=== PATIENT | female | born 1935 | race Caucasian/White ===

== ENCOUNTER 2016-07-25 08:24 | Observation (INO) | payer MEDICARE, OTHER ==
[~2016-07-25] VITALS: Ht 157.5 cm; Wt 63.0 kg
[2016-07-25] VITALS (7 sets, daily range): BP systolic 150–167; BP diastolic 65–71; PULSE 44–71; RESP 20–22; Ht 157.5 cm; Wt 63.0 kg
[2016-07-25] MEDS ORDERED: ONDANSETRON 4 MG INJ IV STA (08:28)
[2016-07-25] MEDS ORDERED: SOD CHLORIDE 0.9% 1,000 ML IV STA (08:28)
--- NOTE | 2016-07-25 08:39 | ERA ---
ER Documentation Chief Complaint Date/Time DATE: 07/25/16 TIME: 08:33 Chief Complaint HPI This is an 81-year-old Tuvaluan-speaking female that was brought into the emergency department by EMS complaining of a sudden onset of dizziness upon awakening this morning. She felt as though the room was spinning around her. Her symptoms are worse when she sat up and better when she lies supine. The dizziness became so intense that she lie down on the floor to improve her symptoms. She indicates she has had multiple similar episodes of dizziness in the past but this appeared to be more intense where she felt nauseous however she did not experience any emesis. She denied headache or changes in vision. She denied any syncope or near syncope. She denies any urinary incontinence. She does not have a history of dementia and there is been no changes in her gait. Her [id number] indicates that on July 11, 2015 she was diagnosed with the flu. She was placed on antibiotics by her primary care physician which she completed but cannot remember the name of the antibiotics. Shortly after she developed loose watery stools but denies any hemoptysis hematemesis or melanotic stools. ROS All systems reviewed and are negative except as per history of present illness. Medications Home Meds Reported Medications Olopatadine* (Pataday*) 0.2% - 2.5 Ml Drops, 1 DROP BOTH EYES DAILY, EA 07/25/16 Clonidine Hcl* (Clonidine Hcl*) 0.1 Mg Tab, 0.1 MG PO DAILY Y for ELEVATED BLOOD PRESSURE, TAB 07/25/16 Metoprolol Succinate* (Toprol XL*) 25 Mg Tab.sr.24h, 25 MG PO BID, #30 TAB 07/25/16 Escitalopram Oxalate* (Lexapro*) 10 Mg Tablet, 10 MG PO DAILY, #30 TAB 07/25/16 Esomeprazole Mag Trihydrate (Nexium) 40 Mg Capsule.dr, 40 MG PO DAILY, #30 CAP 07/25/16 Atorvastatin Calcium* (Atorvastatin Calcium*) 20 Mg Tablet, 20 MG PO QHS, #30 TAB 07/25/16 Losartan-Hydrochlorothiazide (Losartan-HCTZ) 50-12.5 Mg Tab, 1 TAB PO BID, TAB 07/25/16 Amlodipine Besylate* (Amlodipine Besylate*) 5 Mg Tablet, 5 MG PO BID, #30 TAB 07/25/16 Furosemide* (Furosemide*) 20 Mg Tablet, 20 MG PO DAILY, #60 TAB 07/25/16 Warfarin Sodium* (Coumadin*) 2 Mg Tablet, 3 MG PO DAILY, TAB 07/25/16 Benzonatate* (Benzonatate*) 100 Mg Capsule, 100 MG PO QID Y for COUGH, CAP 07/25/16 Triazolam* (Triazolam*) 0.25 Mg Tablet, 0.25 MG PO HS Y for INSOMNIA, TAB 07/25/16 Ferrous Sulfate* (Ferrous Sulfate*) 325 Mg Tabec, 325 MG PO BID, TAB 07/25/16 Potassium Chloride* (Klor-Con*) 8 Meq Tablet.sa, 8 MEQ PO DAILY, TAB 07/25/16 Discontinued Reported Medications Losartan Potassium* (Losartan Potassium*) 50 Mg Tablet, 50 MG PO BID, TAB 07/25/16 Allergies Allergies: Coded Allergies: No Known Allergy (Unverified , 07/25/16) Physical Exam Vitals Vital Signs Date Time Temp Pulse Resp B/P Pulse Ox O2 Delivery O2 Flow Rate FiO2 07/25/16 09:54 65 18 147/60 98 Nasal Cannula 2.0 07/25/16 08:36 98.2 88 16 172/94 99 Physical Exam Constitutional:Well-developed. Well-nourished. HEENT:Normocephalic. Atraumatic.Pupils were equal round reactive to light. Dry mucous membranes.No tonsillar exudates. Fundoscopy exam showed sharp optic disks and venous pulsations are present Neck: No nuchal rigidity. No lymphadenopathy. No posterior cervical spine tenderness or step-offs. Respiratory: Not using accessory muscles of respiration.Lungs were clear to auscultation bilaterally. No rhonchi. No rales. No wheezing. Cardiovascular: Regular rate regular rhythm.No murmurs. Aortic valve click from previous valve repair with no rubs were appreciated.S1, S2 normal. Distal pulses are palpable 2+ bilaterally. GI: Abdomen was soft. Nontender. Non Distended. No pulsatile abdominal masses or bruits. No rebound. No guarding. Bowel sounds were present and normal. Muscle skeletal: Full range of motion of both the upper and lower extremities bilaterally.Normal muscle tone.No assymetrical calf tenderness or swelling. Skin: No petechia, no purpura. No lesions on the palms or the soles of the feet. No maculopapular rash. NEURO: Patient was alert, awake, orientated x3.No facial droop. Gait observed and normal with no ataxia.Speech had regular rate and rhythm. No focal neurological deficits. No nystagmus Result Diagram: 07/25/16 0847 07/25/16 0847 Results 24 hrs Laboratory Tests Test 07/25/16 08:47 Activated Partial Thromboplast Time 50.6Sec Alanine Aminotransferase (ALT/SGPT) 13IU/L Albumin 4.0g/dl Albumin/Globulin Ratio 1.25 Alkaline Phosphatase 99IU/L Amylase Level 88U/L Anion Gap 19 Aspartate Amino Transf (AST/SGOT) 18IU/L B-Type Natriuretic Peptide 1700PG/ML Basophils # 0.010^3/ul Basophils % 0.2% Blood Morphology Comment Blood Urea Nitrogen 44mg/dl Calcium Level 9.0mg/dl Carbon Dioxide Level 26mmol/L Chloride Level 103mmol/L Creatinine 1.19mg/dl Direct Bilirubin 0.00mg/dl Eosinophils # 0.110^3/ul Eosinophils % 0.9% Globulin 3.20g/dl Glucose Level 172mg/dl Hematocrit 31.5% Hemoglobin 10.4g/dl INR International Normalized Ratio 3.15 Indirect Bilirubin 0.2mg/dl Lactic Acid Level 2.6mmol/L Lipase 100U/L Lymphocytes # 0.810^3/ul Lymphocytes % 7.4% Mean Corpuscular Hemoglobin 30.3pg Mean Corpuscular Hemoglobin Concent 33.1g/dl Mean Corpuscular Volume 91.6fl Mean Platelet Volume 8.0fl Monocytes # 0.710^3/ul Monocytes % 6.2% Neutrophils # 9.610^3/ul Neutrophils % 85.3% Nucleated Red Blood Cells # 0.010^3/ul Nucleated Red Blood Cells % 0.0/100WBC Platelet Count 51456^3/UL Potassium Level 3.6mmol/L Prothrombin Time 32.8Sec Prothrombin Time Ratio 2.6 Red Blood Count 3.4410^6/ul Red Cell Distribution Width 15.2% Sodium Level 144mmol/L Total Bilirubin 0.2mg/dl Total Protein 7.2g/dl Troponin I < 0.012ng/ml Urine Bacteria FEW Urine Bilirubin NEGATIVE Urine Clarity CLEAR Urine Color LT. YELLOW Urine Glucose NEGATIVE% Urine Hemoglobin 1+ Urine Ketones NEGATIVE Urine Leukocyte Esterase NEGATIVE Urine Microscopic RBC 5-10/HPF Urine Microscopic WBC 0-2/HPF Urine Nitrite NEGATIVE Urine Specific [place] 1.025 Urine Squamous Epithelial Cells FEW Urine Total Protein 4+ Urine Urobilinogen 0.2 E.U./dL Urine pH 6.0 White Blood Count 11.210^3/ul Current Medications Medications (Trade) Dose Ordered Sig/Toy Route PRN Reason Start Time Stop Time Status Last Admin Dose Admin Sodium Chloride (NS) 1,000 ml @ 1,000 mls/hr Q1H STAT IV 07/25/16 08:28 07/25/16 09:27 DC 07/25/16 09:07 Ondansetron HCl (Zofran Inj) 4 mg ONCE STAT IV 07/25/16 08:28 07/25/16 08:32 DC 07/25/16 09:05 Clonidine (Catapres) 0.1 mg ONCE ONCE PO 07/25/16 08:30 07/25/16 08:32 DC Meclizine HCl (Antivert) 25 mg ONCE ONCE PO 07/25/16 09:00 07/25/16 09:01 DC 07/25/16 09:06 Procedures/[facility] This patient was seen and evaluated by myself. The patient presented to the emergency department complaining of dizziness. My differential diagnosis included but was not limited to hypovolemia, myocardial infarction, pulmonary embolism, hypoglycemia, hypoxia, anemia, vasovagal episode, hypothyroidism, anxiety, peripheral or central vertigo. The patient was placed on a patient monitor, continuous pulse oximetry and IV access established by nursing staff. The patient was given a liter bolus of 0.9 normal saline as she did appear to have clinical dehydration with dry mucous membranes and diarrhea over the past several days. The patient indicates that the diarrhea has improved but has not completely resolved. She is at risk of Clostridium difficile and therefore I will obtain a stool sample to send for C. difficile. The patient had prerenal azotemia with lactic acidosis likely secondary to severe dehydration. 12 Lead EKG tracing ordered and reviewed by myself showed: Normal sinus rhythm of [address] scan of the patient's head which was reviewed by the radiologist as well as myself and indicated the following bpm and no arrhythmia. [place] interval normal. QRS duration normal. No ST segment elevation No ST segment depression. No changes consistent with acute ischemia. Also obtained a CT scan of the patient's head ordered and reviewed by myself as well as the radiologist which indicated the following: No acute intracranial hemorrhage or significant mass effect. Severe subacute to chronic microvascular disease and intracranial atherosclerosis. If there is suspicion for recent stroke, consider brain MRI for further evaluation. Chronic-appearing bilateral cerebellar infarcts. Enlarged ventricles with relative effacement of sulci at the vertex may be due to central greater than peripheral volume loss. Alternatively in the appropriate clinical setting, normal pressure hydrocephalus may also have this appearance. The patient is therapeutic with her INR as she is on Coumadin. She has been on Coumadin since 2000 after the patient had a suspected valvular repair with an open heart surgery. The patient did not have any physical exam findings to suggest normal pressure hydrocephalus as the patient did not have any urinary incontinence, no dementia no changes in her gait. Nor did the patient complained of a headache. She did however have dizziness but no syncope or near syncope episode. She will be given Zofran and Antivert and stated her symptoms had completely resolved and they also improved after she received IV fluids. However given the patient's multiple comorbidities and severe dehydration she will be admitted to the hospital to receive IV hydration. I also spoke with the neurosurgeon Dr. Blanco who kindly stated he will be consulted on the case but at this time the patient did not require any neurosurgical intervention. The patient was admitted in serious condition under the care of Dr. Brand the hospitalist Departure Diagnosis: Primary Impression: Dizziness Additional Impressions: Prerenal azotemia Severe dehydration Condition: JAX Jovel Jul 25, 2016 08:39
[2016-07-25] MEDS ORDERED: MECLIZINE 12.5 MG TAB PO ONE (09:00)
[2016-07-25 09:16] LABS: BASOPHILS % 0.2 % (0.0-2.0); EOSINOPHILS # 0.1 10^3/ul (0.0-0.5); EOSINOPHILS % 0.9 % (0.0-7.0); HEMATOCRIT 31.5 % (37.0-47.0); HEMOGLOBIN 10.4 g/dl (12.0-16.0); LYMPHOCYTES # 0.8 10^3/ul (0.8-2.9); LYMPHOCYTES % 7.4 % (15.0-51.0); MEAN CORPUSCULAR HEMOGLOBIN 30.3 pg (29.0-33.0); MEAN CORPUSCULAR HGB CONC 33.1 g/dl (32.0-37.0); MEAN CORPUSCULAR VOLUME 91.6 fl (82.0-101.0); MONOCYTE # 0.7 10^3/ul (0.3-0.9); MONOCYTES % 6.2 % (0.0-11.0); NEUTROPHIL # 9.6 10^3/ul (1.6-7.5); NEUTROPHILS % 85.3 % (39.0-77.0); PLATELET COUNT 322 10^3/UL (140-440); RED BLOOD COUNT 3.44 10^6/ul (4.20-5.40); RED CELL DISTRIBUTION WIDTH 15.2 % (11.5-14.5); UNCORRECTED WBC 11.2 10^3/ul (4.8-10.8); WHITE BLOOD COUNT 11.2 10^3/ul (4.8-10.8)
[2016-07-25 09:17] LABS: CONDITION 1; LH ANALYZER COMMENTS 1
--- NOTE | 2016-07-25 09:17 | RADRPT ---
PROCEDURE: CT Brain without contrast. CLINICAL INDICATION: Neurologic deficit TECHNIQUE: A CT of the brain was performed on multidetector high-resolution CT scanner utilizing a xial sections from the skull base through the vertex without contrast. One or more of the following dose reduction techniques were used: Automated exposure control, Adjustment of the mA and/or kV acc ording to patient size, and/or use of iterative reconstruction technique. DOSE: CTDI = 43 mGy and the DLP = 630 mGy-cm. COMPARISON: None available FINDINGS: No acute intracranial hemorrhage, significant mass effect or midline shift. Confluent hypoattenuatio n of the cerebral white matter is compatible with severe subacute to chronic microvascular ischemic changes. Chronic-appearing bilateral cerebellar infarcts. Atherosclerotic calcifications of the cave rnous segments of the internal carotid arteries are seen. Prominence of the cortical sulci and ventr icles with relative effacement of sulci at the vertex. Paranasal sinus mucosal thickening with parti al opacification of the right maxillary sinus. Scattered calcifications are seen which may be a seq uela of old healed neurocysticercosis. IMPRESSION: No acute intracranial hemorrhage or significant mass effect. Severe subacute to chronic microvascular disease and intracranial atherosclerosis. If there is suspi cion for recent stroke, consider brain MRI for further evaluation. Chronic-appearing bilateral cerebellar infarcts. Enlarged ventricles with relative effacement of sulci at the vertex may be due to central greater th an peripheral volume loss. Alternatively in the appropriate clinical setting, normal pressure hydroc ephalus may also have this appearance. RPTAT: AA .Rupesh Garcia MD, MD Date Time Electronically viewed and signed by .Rupesh Garcia MD, on 07/25/2016 09:17 .T/
[2016-07-25 09:20] LABS: CHLORIDE 103 mmol/L (97-110)
[2016-07-25 09:21] LABS: ADD UMIC YES; INR 3.15; POTASSIUM 3.6 mmol/L (3.5-5.1); PROTIME 32.8 Sec (12.2-14.2); PT RATIO 2.6; SODIUM 144 mmol/L (135-144); URINE BILIRUBIN (Dip) NEGATIVE (NEGATIVE); URINE BLOOD (Dip) 1+ (NEGATIVE); URINE COLOR LT. YELLOW (YELLOW); URINE GLUCOSE (Dip) NEGATIVE (NEGATIVE); URINE KETONES (Dip) NEGATIVE (NEGATIVE); URINE LEUKOCYTE ESTERASE (Dip) NEGATIVE (NEGATIVE); URINE NITRITE (Dip) NEGATIVE (NEGATIVE); URINE TOTAL PROTEIN (Dip) 4+ (NEGATIVE); URINE UROBILINOGEN (Dip) 0.2 E.U./dL (0.1-1.0)
[2016-07-25 09:22] LABS: PARTIAL THROMBOPLASTIN TIME 50.6 Sec (25.0-35.0)
[2016-07-25 09:23] LABS: AMYLASE 88 U/L (11-123); ANION GAP 19 (8-16); CARBON DIOXIDE 26 mmol/L (21-31)
[2016-07-25 09:24] LABS: ALANINE AMINOTRANSFERASE 13 IU/L (13-69); ALBUMIN/GLOBULIN RATIO 1.25; ALKALINE PHOSPHATASE 99 IU/L (42-121); ASPARTATE AMINO TRANSFERASE 18 IU/L (15-46); BILIRUBIN,INDIRECT 0.2 mg/dl (0-1.1); BILIRUBIN,TOTAL 0.2 mg/dl (0.2-1.3); BLOOD UREA NITROGEN 44 mg/dl (7-20); CREATININE 1.19 mg/dl (0.44-1.00); GLUCOSE 172 mg/dl (70-220); TOTAL PROTEIN 7.2 g/dl (6.1-8.1)
[2016-07-25 09:42] LABS: TROPONIN-I < 0.012 ng/ml (0.00-0.12)
[2016-07-25] MEDS ORDERED: POTA8TAB2 PO (10:12)
[2016-07-25] MEDS ORDERED: FER325 PO (10:13)
[2016-07-25] MEDS ORDERED: TRIA0.2521 PO (10:13)
[2016-07-25] MEDS ORDERED: BENZ-5 PO (10:14)
[2016-07-25] MEDS ORDERED: WARF2TAB PO (10:14)
[2016-07-25] MEDS ORDERED: FURO20TA3 PO (10:15)
[2016-07-25] MEDS ORDERED: AMLO-145 PO (10:16)
[2016-07-25] MEDS ORDERED: LOSA50TA6 PO (10:16)
[2016-07-25] MEDS ORDERED: LOSA1TAB19 PO (10:17)
[2016-07-25] MEDS ORDERED: ATOR20TA38 PO (10:18)
[2016-07-25] MEDS ORDERED: ESOM40CA PO (10:19)
[2016-07-25] MEDS ORDERED: METO25TA7 PO (10:20)
[2016-07-25] MEDS ORDERED: ESCI10TA PO (10:20)
[2016-07-25] MEDS ORDERED: CLON-379 PO (10:23)
[2016-07-25] MEDS ORDERED: OLOP2.5D BOTH EYES (10:24)
[2016-07-25 10:27] LABS: BACTERIA,URINE FEW; SQUAMOUS EPITHELIAL CELL,UR FEW
--- NOTE | 2016-07-25 10:28 | RADRPT ---
PROCEDURE: CHEST 1VW CLINICAL INDICATION: Chest pain TECHNIQUE: Single frontal view of the chest was obtained COMPARISON: None. FINDINGS: There are sternotomy wires and prosthetic heart valve present. The cardiac size is mildly enlarged. Aortic vascular calcifications are demonstrated. There is mild pulmonary vascular congestion. The lungs are otherwise clear. No consolidation, effusion, or pneumothorax. Mild degenerative changes of the visualized osseous structures are visualized. IMPRESSION: 1. Mild cardiomegaly with mild pulmonary vascular congestion. 2. Atherosclerosis. RPTAT:PP .Adolfo Long MD, MD Date Time Electronically viewed and signed by .Adolfo Long MD, on 07/25/2016 10:28 .V/
[2016-07-25] MEDS ORDERED: ONDANSETRON 4 MG INJ IV PRN (11:30)
[2016-07-25] MEDS ORDERED: ACETAMINOPHEN 325 MG TAB PO PRN (11:30)
[2016-07-25] MEDS ORDERED: INFLUENZA VIRUS VACCINE 0.5 ML SYG IM* ONE (15:30)
[2016-07-25] MEDS ORDERED: NON-FORMULARY/PATIENT OWN MED (Esomeprazole Mag Trihydrate (Nexium) 40 MG) PO SCH (17:30)
[2016-07-25] MEDS ORDERED: SOD CHLORIDE 0.9% 1,000 ML IV SCH (17:30)
[2016-07-25] MEDS ORDERED: ALPRAZOLAM 0.25 MG TAB PO PRN (17:30)
[2016-07-25 18:39] LABS: CREATINE KINASE 86 IU/L (23-200)
[2016-07-25 18:49] LABS: CK-MB 3.12 ng/ml (0.0-2.4)
[2016-07-25 19:01] LABS: TROPONIN-I < 0.012 ng/ml (0.00-0.12)
[2016-07-25] MEDS ORDERED: LORAZEPAM 2 MG INJ IV ONE (20:30)
--- NOTE | 2016-07-25 20:37 | CONS ---
Date/Time of Note Date/Time of Note DATE: 07/25/16 TIME: 20:15 Assessment/Plan Assessment/Plan Problems: (1) Hydrocephalus Comment: The patient does have prominent ventricles. Her clinical picture however is not consistent with NPH or other forms of hydrocephalus. Her thinking is lucid and she is not incontinent. Gait may not be normal, but I do not feel it is lopez to get her up now given ongoing vertigo. In any case, NPH better assessed in outpatient setting. I discussed with patient 's daughter that in the future if the patient develops thinking problems, worsening gait and/or urinary incontinence she should be evaluated for possible NPH. (2) Vertigo Comment: Patient with severe vertigo spell. This is not related to ventricular size and is not a neurosurgical issue. May be related to dehydration. Likely peripheral in origin but neurovascular posterior circulation problem cannot be excluded. Should be evaluated by MRI and further workup perhaps by neurology and /or ENT. I would also recommend continuing anticoagulant. Recommend 1. MRI brain 2. Neurology and/or ENT as appropriate 3. Continue Coumadin, blood thinners. Consultation Date/Type/Reason Admit Date/Time Jul 25, 2016 at 11:17 Date of Consultation: Jul 25, 2016 Type of Consultation: Neurosurgery Reason for Consultation Hydrocephalus Hx of Present Illness The patient was admitted due to episode of severe vertigo today. She reports that upon awakening she experienced violent room spinning. She had to lie down on the floor. Room seemed to be spinning. Accompanied by nausea and vomiting. Since then she feels much better but continues to have vertigo especially when sits up or with head of bed elevated. She reports that prior to this episode she was frequently dizzy with poor balance but nothing nearly as severe as today. Several weeks ago she had flu and since then has had very loose stools. Possibly getting dehydrated. No headache or neck pain. No changes in vision and she needs glasses only for reading. Hearing is normal on both sides. She reports that 3 days ago she had R arm numbness which resolved after 1 day. She is very slow walking, but this is related to weakness and fear of getting dizzy and falling. She reports no problems getting her legs to move. No incontinence. No confusion. She wishes memory was better but does not think it is particularly abnormal. Her daughter says that she is entirely lucid and indeed very mentally sharp. Lives and cares for herself including paying bills. 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 Constitutional: No chills, No diaphoresis Eyes: No visual change ENT: other (no hearing loss) Respiratory: No pain, No shortness of breath Cardiovascular: No chest pain Gastrointestinal: diarrhea, nausea, vomiting, No pain Genitourinary: no complaints Musculoskeletal: No back pain, No neck pain Neurologic: dizziness, No confusion, No focal-weakness, No headache Psychological: no complaints Past Medical History Medical History: hypertension, other (valvular heart disease) Past Surgical History Past Surgical Hx: other (heart valve replacement) Social History Alcohol Use: none Smoking Status: Never smoker Drug Use: none Other Social History lives by herself Exam/Review of Systems Vital Signs Vitals Vital Signs Date Time Temp Pulse Resp B/P Pulse Ox O2 Delivery O2 Flow Rate FiO2 07/25/16 17:12 97.8 60 20 151/68 98 07/25/16 16:48 Nasal Cannula 2.0 Exam Constitutional: alert, oriented, No distress Psych: nl mood/affect Head: atraumatic, normocephalic Eyes: EOMI (R pupil 3mm; L pupil 4mm, both reactive), nl conjunctiva ENMT: nl external ears & nose Neck: other (limits ROM due to dizziness), supple Cardiovascular: nl pulses Musculoskeletal: nl extremities to inspection, No muscle weakness Extremities: No calf tenderness, No edema Neurological: nl mental status, nl speech, No confused, No focal weakness (face symmetric, tongue and palate midline; motor 5/5 distal and proximal all extrem; normal bulk and tone; no drift; sensation itact LT all extrem. DTRs 1+/2 bicep, tricep, knees; 0/2 ankles; toes equivocal; no dysmetria and coordiation seems intact bilat) Results I reviewed CT brain; ventricles are prominent with possibly some transependymal flow; sulci also prominent. She has age-appropriate atrophy with possibly ventricles enlarge out of proportion to sulci. Result Diagram: 07/25/16 0847 07/25/16 0847 Results 24 hrs Laboratory Tests Test 07/25/16 08:47 07/25/16 17:50 Activated Partial Thromboplast Time 50.6 H Alanine Aminotransferase (ALT/SGPT) 13 Albumin 4.0 Albumin/Globulin Ratio 1.25 Alkaline Phosphatase 99 Amylase Level 88 Anion Gap 19 H Aspartate Amino Transf (AST/SGOT) 18 B-Type Natriuretic Peptide 1700 H Basophils # 0.0 Basophils % 0.2 Blood Morphology Comment Blood Urea Nitrogen 44 H Calcium Level 9.0 Carbon Dioxide Level 26 Chloride Level 103 Creatinine 1.19 H Direct Bilirubin 0.00 Eosinophils # 0.1 Eosinophils % 0.9 Globulin 3.20 Glucose Level 172 Hematocrit 31.5 L Hemoglobin 10.4 L INR International Normalized Ratio 3.15 Indirect Bilirubin 0.2 Lactic Acid Level 2.6 H 1.4 Lipase 100 Lymphocytes # 0.8 Lymphocytes % 7.4 L Mean Corpuscular Hemoglobin 30.3 Mean Corpuscular Hemoglobin Concent 33.1 Mean Corpuscular Volume 91.6 Mean Platelet Volume 8.0 Monocytes # 0.7 Monocytes % 6.2 Neutrophils # 9.6 H Neutrophils % 85.3 H Nucleated Red Blood Cells # 0.0 Nucleated Red Blood Cells % 0.0 Platelet Count 322 Potassium Level 3.6 Prothrombin Time 32.8 H Prothrombin Time Ratio 2.6 Red Blood Count 3.44 L Red Cell Distribution Width 15.2 H Sodium Level 144 Total Bilirubin 0.2 Total Protein 7.2 Troponin I < 0.012 < 0.012 Urine Bacteria FEW Urine Bilirubin NEGATIVE Urine Clarity CLEAR Urine Color LT. YELLOW Urine Glucose NEGATIVE Urine Hemoglobin 1+ H Urine Ketones NEGATIVE Urine Leukocyte Esterase NEGATIVE Urine Microscopic RBC 5-10 Urine Microscopic WBC 0-2 Urine Nitrite NEGATIVE Urine Specific [place] 1.025 Urine Squamous Epithelial Cells FEW Urine Total Protein 4+ H Urine Urobilinogen 0.2 E.U./dL Urine pH 6.0 White Blood Count 11.2 H Creatine Kinase 86 Creatine Kinase Index 3.6 Creatinine Kinase MB (Mass) 3.12 H Medications Medications Current Medications Amlodipine Besylate (Norvasc) 5 mg BID PO ; Start 07/25/16 at 21:00 Atorvastatin Calcium (Lipitor) 20 mg QHS PO ; Start 07/25/16 at 21:00 Clonidine (Catapres) 0.1 mg DAILY PRN PO sbp>160mmhg; Start 07/25/16 at 17:30 Escitalopram Oxalate (Lexapro) 10 mg DAILY@21 PO ; Start 07/25/16 at 21:00 Ferrous Sulfate (Ferrous Sulfate (Ec)) 325 mg BID PO ; Start 07/25/16 at 21:00 Miscellaneous Information 1 drop DAILY BOTH EYES ; Start 07/26/16 at 09:00; Status UNV Alprazolam 0.125 mg 0.125 mg QHS PRN PO anxiety; Start 07/25/16 at 17:30 Sodium Chloride (NS) 1,000 ml @ 80 mls/hr [id number] IV Last administered on 07/25t 19:00; Admin Dose 80 MLS/HR; Start 07/25/16 at 17:30; Stop 07/26/16 at 05: 59 Pantoprazole (Protonix Tab) 40 mg DAILY@06 PO ; Start 07/26/16 at 06:00 TERRY KNAPP MD Jul 25, 2016 20:25
[2016-07-25] MEDS: ATORVASTATIN 20 MG TAB PO SCH (21:43)
[2016-07-25] MEDS: ESCITALOPRAM 10 MG TAB PO SCH (21:43)
[2016-07-25] MEDS: AMLODIPINE 5 MG TAB PO SCH (21:43)
[2016-07-25] MEDS: FERROUS SULFATE (EC) 325 MG TAB PO SCH (21:43)
[2016-07-26] VITALS (16 sets, daily range): BP systolic 133–191; BP diastolic 61–75; PULSE 58–86; RESP 17–20
--- NOTE | 2016-07-26 00:58 | HP ---
DATE OF ADMISSION: 07/25/2016 PRESENTING COMPLAINT: Dizziness. HISTORY OF PRESENTING COMPLAINT: This is an 81-year-old female who was brought into the emergency r oom by ambulance called by her son after she had experienced some severe dizziness and inability to stand that had started this morning. The history is given to me by the daughter because the patient is non-Tunisian speaking; however, the patient is very with it. She knows all her home medications by heart and is assisting actively in the history taking process. Apparently, a couple of days ago the patient had a feeling of slightly weak and with runny nose and fever and she was treated with a short course of antibiotics orally by her primary care physician with mild improvement in her sympto ms. However, since then or just around that period as well, the patient has been having loose blood streaked stool that her daughter thinks has been going on for about 2 weeks until now, but seems to have resolved at this time. The patient was said to have been fine yesterday and woke up this morn ing with sudden onset of dizziness and just feeling of inability to stand. Finally, the patient dec ided to lie down flat on the floor and called her family. Her family called EMS and the patient was brought to the emergency room. She is being admitted because she was found to be acutely dehydrate d with elevated lactic acidosis and elevated BUN and creatinine. She is also being admitted for fur ther workup of acute dizziness. PAST MEDICAL HISTORY: Includes: 1. Glaucoma. 2. High blood pressure. 3. Depression. 4. GERD 5. Dyslipidemia. 6. History of mechanical valve placement, on Coumadin therapy. 7. Recent viral versus bacterial infection, treated with antibiotics. PAST SURGICAL HISTORY: The patient has had coronary artery bypass surgery, as well as valve replace ment surgery. ALLERGIES: NO KNOWN DRUG ALLERGIES. SOCIAL HISTORY: The patient has never smoked. Denies alcohol or illicit drug use. FAMILY HISTORY: Noncontributory in this 81-year-old female. REVIEW OF SYSTEMS: A 12-point review of system was done. The patient denies headaches or vision ch anges. She denies chest pain. She denied abdominal pain, nausea or vomiting. She denies dysuria o r hematuria. Patient is usually able to take care of herself. No history of dementia. No history of focal deficit. PHYSICAL EXAMINATION: VITAL SIGNS: Temperature 98.2, pulse is 65, respirations 18, blood pressure when she came in was 17 , but has improved to 147/60, saturations 98% on oxygen via nasal cannula at 2 liters. GENERAL: The patient was alert, elderly lady well-developed, currently in no distress. HEENT: Head is normocephalic and atraumatic with pupils equal, round and reactive to light. Mucous membranes are moist. Posterior pharynx is clear of erythema and exudate. NECK: Supple without JVD or adenopathy. CHEST: Clear to auscultation with no crackles, wheezes, or rhonchi. CARDIOVASCULAR: Heart sounds S1 and 2 with significant valvular click from mechanical heart valve, but no pericardial rub noted. ABDOMEN: Soft, nontender, nondistended, normoactive bowel sounds. EXTREMITIES: No lower extremity edema. NEUROLOGIC: No focal neurologic deficits. SKIN: No rash, no jaundice. LABORATORY VALUES: Leukocytosis of 11,000 when admitted, low hemoglobin of 10 with normal platelets . Her chemistry: BUN was elevated at 44, creatinine of 1.19. ____ lactic acid was elevated at 2.6 . ____ unremarkable. Her lipase level was within normal limits. Her INR was slightly supratherape utic at 3.15 and her urinalysis had 1+ hemoglobin, 5 to 10 red blood cells per high power field, 0 t o 2 white blood cells per high power field, negative nitrite, 1+ protein ____. EKG: Her EKG was reviewed by myself and basically had a normal sinus rhythm with a rate of 72 and w as without changes suggestive of an acute ischemic event. IMAGING: CT scan of the brain was read by radiologist, which showed no acute intracranial hemorrhag e or significant mass effect. Severe subacute chronic microvascular disease and intracranial athero sclerosis. If there is suspicion for recent stroke, consider getting an MRI for further evaluation. Clinical appearing bilateral cerebellar infarct. Enlarged ventricles with relative effacement of sulci ____ normal pressure hydrocephalus may have this appearance. Her chest x-ray I reviewed and i t did not show any acute cardiopulmonary abnormality. There is mild cardiomegaly, no evidence of ov ert ____. IMPRESSION: 1. Acute onset of dizziness and weakness with CT findings concerning for normal pressure hydrocepha anila, rule out an acute ischemic event. 2. Acute dehydration likely secondary to ____ diarrhea which could also explain #1. 3. Lactic acidosis, will repeat ____ dehydration. 4. Diarrhea which seems to have resolved, which is concerning for Clostridium difficile infection a s it commenced after antibiotic therapy for flu-like symptoms. 5. Proteinuria, rule out chronic kidney disease. 6. History of coronary artery bypass surgery as well as valve replacement surgery, on Coumadin ther apy ____. 7. ____ mild congestive heart failure with elevated BNP of 1700. 8. High blood pressure with suboptimal control. 9. History of glaucoma. 10. History of depression. 11. Dyslipidemia. 12. Mild acute renal insufficiency. 13. Chronic bilateral cerebellar infarct. The plan at this time is to admit the patient to a monitored floor, complete an ACS rule out. Comme nce gentle hydration. I will also get a 2D echo. At this time, I will hold off on aggressive diure sis in the setting of mild acute renal insufficiency until I review the echocardiogram results. Als o, the patient will benefit from an MRI; however, because of her mechanical valve, this may not be p ossible. We will see what the radiologist says. In the meantime, though, we will get Neurology con sultation to review the patient because of her CT findings and her symptomatology. The patient will benefit from a physical therapy evaluation ____. Further interventions will depend on ____. I discussed with the patient's daughter in detail. We will send a urine culture to rule out an occu lt UTI causing her symptoms even though it is unlikely. Further interventions will depend on our fi ndings and cardiology recommendations. As her INR is mildly supratherapeutic at this time, I will h old off on Coumadin therapy for one day. I will probably resume on a low dose after that. Again, t his has already reviewed with the patient and her daughter. Questions have been answered. Evaluati on time has been about 45 minutes. Dictated By: GUERRERO PETTIT MD, BA/DAVID Conf#: [id number] DID#: [id number]
[2016-07-26] MEDS: PANTOPRAZOLE (EC) 40 MG TAB PO SCH (06:20)
[2016-07-26 07:14] LABS: INR 2.88; PARTIAL THROMBOPLASTIN TIME 48.6 Sec (25.0-35.0); PROTIME 30.6 Sec (12.2-14.2); PT RATIO 2.4
[2016-07-26 07:23] LABS: POTASSIUM 3.5 mmol/L (3.5-5.1)
[2016-07-26 07:25] LABS: CREATININE 1.01 mg/dl (0.44-1.00)
[2016-07-26 07:26] LABS: CALCIUM 9.2 mg/dl (8.4-10.2); CHOL/HDL RATIO 4.5 RATIO; CK-MB 3.98 ng/ml (0.0-2.4); MAGNESIUM 1.5 mg/dl (1.7-2.5)
[2016-07-26 07:29] LABS: TROPONIN-I 0.02 ng/ml (0.00-0.12)
[2016-07-26 07:32] LABS: BASOPHILS % 0.3 % (0.0-2.0); EOSINOPHILS # 0.1 10^3/ul (0.0-0.5); EOSINOPHILS % 0.9 % (0.0-7.0); HEMATOCRIT 31.1 % (37.0-47.0); HEMOGLOBIN 10.4 g/dl (12.0-16.0); LYMPHOCYTES # 1.3 10^3/ul (0.8-2.9); MEAN CORPUSCULAR HEMOGLOBIN 30.5 pg (29.0-33.0); MEAN CORPUSCULAR HGB CONC 33.4 g/dl (32.0-37.0); MEAN CORPUSCULAR VOLUME 91.4 fl (82.0-101.0); MEAN PLATELET VOLUME 8.1 fl (7.4-10.4); MONOCYTE # 0.7 10^3/ul (0.3-0.9); MONOCYTES % 5.7 % (0.0-11.0); NEUTROPHIL # 10.4 10^3/ul (1.6-7.5); NEUTROPHILS % 83.1 % (39.0-77.0); PLATELET COUNT 343 10^3/UL (140-440); RED CELL DISTRIBUTION WIDTH 14.9 % (11.5-14.5); UNCORRECTED WBC 12.5 10^3/ul (4.8-10.8); WHITE BLOOD COUNT 12.5 10^3/ul (4.8-10.8)
[2016-07-26 07:47] LABS: CONDITION 1; LH ANALYZER COMMENTS 1
[2016-07-26 07:58] LABS: THYROID STIMULATING HORMONE 2.24 MIU/L (0.465-4.680)
[2016-07-26] MEDS: FERROUS SULFATE (EC) 325 MG TAB PO SCH ×2 (08:47→21:30)
[2016-07-26] MEDS: AMLODIPINE 5 MG TAB PO SCH ×2 (08:48→21:30)
[2016-07-26] MEDS: OLOPATADINE 0.1% 5 ML OPH BOTH EYES SCH ×2 (12:16→21:30)
--- NOTE | 2016-07-26 14:09 | PN ---
Date/Time of Note Date/Time of Note DATE: 07/26/16 TIME: 14:08 Assessment/Plan VTE Prophylaxis VTE Prophylaxis Intervention: other (coumdain) Lines/Catheters IV Catheter Type (from Nrs): Peripheral IV Urinary Cath still in place: No Assessment/Plan Assessment/Plan 81 yo F who resides alone managed for PROBLEMS: Acute onset of dizziness and weakness * CT findings concerning for normal pressure hydrocephalus however neurosurgeon thinks unlikely * unable to get MRI d/t heart valve * ?2/2 dehydration, versus cardiac - no arrhythmia so far on monitor Acute renal insufficiency 2/2 dehydration from diarrhea r/o CKD Lactic acidosis 2/2 dehydration: resolved Diarrhea ? resolved * C-diff r/o pending with recent hx of antibiotic use Proteinuria, rule out chronic kidney disease (DM nephropathy) CAD s/p History of coronary artery bypass surgery as well as valve replacement surgery, on Coumadin therapy * r/o ACS Mild congestive heart failure with elevated BNP of 1700. Prediabetic A1C 6.6 High blood pressure with suboptimal control. History of glaucoma. Chronic depression. Dyslipidemia. Chronic bilateral cerebellar infarct. PLAN F/u Bilateral carotids / 2D echo / Neurology recs / PT eval Start SSI / ADA diet / diabetic education Cardiology consult for elevated CKMb Continue home meds Add ACEi to regimen Replace electrolytes Resume Coumadin at lower dose and titrate to keep INR btw 2-3 Family desires possible acute rehab placement as she was so high functioning prior. Continue supportive care PROPHYLAXIS: Coumadin / PPI Subjective 24 Hr Interval Summary Free Text/Dictation Still with some dizziness on standing Unable to have MRI d/t heart valve Exam/Review of Systems Vital Signs Vitals Vital Signs Date Time Temp Pulse Resp B/P Pulse Ox O2 Delivery O2 Flow Rate FiO2 07/26/16 12:35 Nasal Cannula 2.0 07/26/16 12:13 98.8 74 17 160/67 95 Intake and Output 07/25/16 07/25/16 07/26/16 15:00 23:00 07:00 Intake Total 120 ml 1180 ml Balance 120 ml 1180 ml Exam Constitutional: alert, oriented, No frail Psych: nl mood/affect Head: atraumatic, normocephalic Eyes: PERRL, No icteric ENMT: mucosa pink and moist Neck: supple Respiratory: diminished breath sounds Cardiovascular: other (click from mech valve), regular rate and rhythm Gastrointestinal: bowel sounds, non-tender, soft Extremities: edema Neurological: nl mental status, nl speech Results Result Diagram: 07/26/16 0639 07/26/16 0639 Results 24 hrs Laboratory Tests Test 07/25/16 17:50 07/26/16 06:39 Creatine Kinase 86 172 Creatine Kinase Index 3.6 2.3 Creatinine Kinase MB (Mass) 3.12 H 3.98 H Lactic Acid Level 1.4 Troponin I < 0.012 0.020 Activated Partial Thromboplast Time 48.6 H Anion Gap 17 H Basophils # 0.0 Basophils % 0.3 Blood Morphology Comment Blood Urea Nitrogen 24 #H Calcium Level 9.2 Carbon Dioxide Level 27 Chloride Level 105 Cholesterol Level 142 Cholesterol/HDL Ratio 4.5 Creatinine 1.01 H Eosinophils # 0.1 Eosinophils % 0.9 Glucose Level 105 # HDL Cholesterol 31 L Hematocrit 31.1 L Hemoglobin 10.4 L Hemoglobin A1c 6.6 H INR International Normalized Ratio 2.88 LDL Cholesterol, Calculated 90 Lymphocytes # 1.3 Lymphocytes % 10.0 L Magnesium Level 1.5 L Mean Corpuscular Hemoglobin 30.5 Mean Corpuscular Hemoglobin Concent 33.4 Mean Corpuscular Volume 91.4 Mean Platelet Volume 8.1 Monocytes # 0.7 Monocytes % 5.7 Neutrophils # 10.4 H Neutrophils % 83.1 H Nucleated Red Blood Cells # 0.0 Nucleated Red Blood Cells % 0.0 Platelet Count 343 Potassium Level 3.5 Prothrombin Time 30.6 H Prothrombin Time Ratio 2.4 Red Blood Count 3.40 L Red Cell Distribution Width 14.9 H Sodium Level 145 H Thyroid Stimulating Hormone (TSH) 2.240 Triglycerides Level 106 White Blood Count 12.5 H Medications Medications Current Medications Amlodipine Besylate (Norvasc) 5 mg BID PO Last administered on 07/26/16 08:48 ; Admin Dose 5 MG; Start 07/25/16 at 21:00 Atorvastatin Calcium (Lipitor) 20 mg QHS PO Last administered on 07/25/16 21: 43; Admin Dose 20 MG; Start 07/25/16 at 21:00 Clonidine (Catapres) 0.1 mg DAILY PRN PO sbp>160mmhg; Start 07/25/16 at 17:30 Escitalopram Oxalate (Lexapro) 10 mg DAILY@21 PO Last administered on 21:43; Admin Dose 10 MG; Start 07/25/16 at 21:00 Ferrous Sulfate (Ferrous Sulfate (Ec)) 325 mg BID PO Last administered on 08:47; Admin Dose 325 MG; Start 07/25/16 at 21:00 Olopatadine HCl (Patanol 0.1% Oph) 1 drop BID BOTH EYES Last administered on 12:16; Admin Dose 1 DROP; Start 07/26/16 at 11:30 Alprazolam (Xanax) 0.125 mg QHS PRN PO anxiety Last administered on 07/25/16 21:47; Admin Dose 0.125 MG; Start 07/25/16 at 17:30 Pantoprazole (Protonix Tab) 40 mg DAILY@06 PO Last administered on 07/26/16 06 :20; Admin Dose 40 MG; Start 07/26/16 at 06:00 Procedures Procedures PROCEDURE: CHEST 1VW CLINICAL INDICATION: Chest pain TECHNIQUE: Single frontal view of the chest was obtained COMPARISON: None. FINDINGS: There are sternotomy wires and prosthetic heart valve present. The cardiac size is mildly enlarged. Aortic vascular calcifications are demonstrated. There is mild pulmonary vascular congestion. The lungs are otherwise clear. No consolidation, effusion, or pneumothorax. Mild degenerative changes of the visualized osseous structures are visualized. IMPRESSION: 1. Mild cardiomegaly with mild pulmonary vascular congestion. 2. Atherosclerosis. RPTAT:PP .Adolfo Long MD, Date Time Electronically viewed and signed by .Adolfo Long MD, MD on 07/25/2016 10:28 .V/ CC: JAX ESCAMILAL BOLATITO M. Jul 26, 2016 14:09
[2016-07-26] MEDS ORDERED: MAGNESIUM SULFATE 2 GM/50 ML 50 ML IVPB ONE (15:00)
[2016-07-26] MEDS ORDERED: GLUCOSE GEL 15 GRAM TUBE BUCCAL PRN (15:30)
[2016-07-26] MEDS ORDERED: DEXTROSE 50% 50 ML SYRINGE IV PRN ×2 (15:30)
[2016-07-26] MEDS ORDERED: GLUCOSE GEL 15 GRAM TUBE PO PRN ×2 (15:30)
[2016-07-26] MEDS ORDERED: GLUCAGON 1 MG INJ IM PRN (15:30)
[2016-07-26] MEDS: LISINOPRIL 20 MG TAB PO SCH (15:38)
--- NOTE | 2016-07-26 16:34 | RADRPT ---
PROCEDURE: US Carotids. CLINICAL INDICATION: bruit , dizziness TECHNIQUE: Multiple sonographic of the carotid bifurcation region and vertebral arteries were obta ined utilizing mitchell scale, duplex and color-flow imaging. The images were reviewed on a PACS worksta tion. COMPARISON: No prior studies are available for comparison. FINDINGS: Evaluation of the right carotid bifurcation region reveals no significant calcific atherosclerotic d isease. Evaluation of the left carotid bifurcation region reveals no significant calcific atherosclerotic di sease. There is antegrade flow within the vertebral arteries bilaterally. RIGHT CAROTID MEASUREMENTS: Common Carotid Nqgqul78 (cm/sec) Internal Carotid Artery - wyasvqlf09.9 (cm/sec) Internal Carotid Artery - mid77.2 (cm/sec) Internal Carotid Artery - .6 (cm/sec) Internal Carotid/Common Carotid1.15 LEFT CAROTID MEASUREMENTS: Common Carotid Uguptb96.7 (cm/sec) Internal Carotid Artery - wfcevvil59.6 (cm/sec) Internal Carotid Artery - mid55.7 (cm/sec) Internal Carotid Artery - fmzirs68.8 (cm/sec) Internal Carotid/Common Carotid0.92 RPTAT: AA IMPRESSION: No evidence for hemodynamically significant stenosis in the bilateral internal carotid arteries - va lidated velocity measurements with angiographic measurements, velocity criteria are extrapolated fro m diameter data as defined by the Society of Radiologists in Ultrasound Consensus Conference Radiolo gy 2003; 229;340-346. This study does indirectly reference the measurement of the distal ICA diamet er as the denominator for stenosis measurement. Normal antegrade flow in the vertebral arteries bilaterally. .Francisco Salas MD, Date Time Electronically viewed and signed by .Francisco Salas MD, MD on 07/26/2016 16:34 .S/
[2016-07-26] MEDS ORDERED: FUROSEMIDE 20 MG INJ IV ONE (17:00)
[2016-07-26] MEDS: INSULIN ASPART [NOVOLOG] 3 ML PEN SC SCH ×2 (17:09→21:00)
[2016-07-26] MEDS: WARFARIN 2 MG TAB PO SCH (17:16)
[2016-07-26 18:59] LABS: CREATINE KINASE 220 IU/L (23-200)
[2016-07-26 19:10] LABS: CK-MB 4.69 ng/ml (0.0-2.4)
[2016-07-26 19:13] LABS: TROPONIN-I < 0.012 ng/ml (0.00-0.12)
--- NOTE | 2016-07-26 19:17 | CONS ---
DATE OF ADMISSION: 07/25/2016 DATE OF CONSULTATION: 07/26/2016 TYPE OF CONSULTATION: Neurology. Thank you, Dr. Pettit, for your kind referral for evaluation of dizziness and ventriculomegaly on CAT s can. HISTORY OF PRESENT ILLNESS: The patient is an 81-year-old lady with past medical history of hyperte nsion, dyslipidemia, GERD, status post mechanical valve replacement on Coumadin therapy. The patien t stated that 2 days ago she woke up with severe vertigo. It seemed to be better by now. Vertigo w orsens with movements. No hearing problems, no tinnitus. She stated that she has not had this vert igo before, though she complains of slow and somewhat unsteady gait for the last 6 months. Occasion al lightheadedness, but clearly different from vertiginous dizziness she developed this time She mederos d CAT scan of the head, which did not show any acute abnormality, but white matter disease and ventr iculomegaly out of proportion to the atrophy. The patient was evaluated by neurosurgeon who did not find any neurosurgical pathology. The patient has no urinary incontinence. No particular complain ts of forgetfulness on top of what is "normal for her age" according to her. The patient's labs betty wed INR on admission 3.15, BUN on admission 44, creatinine 1.2. With hydration, BUN 24, creatinine 1.0. Hemoglobin A1c of 6.6. Rest of basic metabolic panel and liver function tests within normal l imits. BNP on admission 1700. Cholesterol 142, LDL 90. TSH is normal. WBC count 11.2 on admissio n, 10.4 hemoglobin, 31.5 hematocrit. Urinalysis 4+ protein and 1 hemoglobin. She had carotid ultrasound within normal limits as well as chest x-ray, mild cardiomegaly with pulmo nary congestion. ALLERGIES: NONE. MEDICATIONS: Prior to admission were: 1. Iron. 2. Warfarin. 3. Amlodipine. 4. Atorvastatin 20. 5. Clonidine. 6. Losartan. 7. Hydrochlorothiazide. 8. Metoprolol. 9. Lexapro. 10. ____. 11. Furosemide. 12. Potassium. 13. Benzonatate. 14. Nexium. Currently she is on: 1. Coumadin. 2. Lisinopril. 3. Amlodipine. 4. Lipitor 20. 5. Lexapro 10. 6. Iron. 7. Catapres p.r.n. 8. Xanax p.r.n. She refused MRI because of claustrophobia. I referred her to get some anxiolytics, but she does not want to have MRI done. SOCIAL HISTORY: No alcohol, tobacco, drug use. FAMILY HISTORY: Hypertension. PHYSICAL EXAMINATION VITAL SIGNS: 97.4 temperature, 70 pulse, 18 respirations, 155/74 blood pressure. GENERAL: She is not in acute distress, sitting on the edge of the bed. HEENT: Normocephalic, atraumatic head. NECK: No carotid bruits. No thyromegaly. LUNGS: Clear to auscultation bilaterally. CARDIAC: Normal cardiac rhythm and sounds. ABDOMEN: Soft, nontender. EXTREMITIES: No cyanosis, clubbing, or edema. NEUROLOGIC: She is awake, alert, and oriented x3 with fluent speech. Cranial nerve examination betty ws intact visual vides bilaterally. Pupils are somewhat sluggish from 4 to 3 mm on the right and f rom 3 to 2 mm on the left. Extraocular movements intact without nystagmus. Symmetrical face. Pres erved facial strength and sensation. Tongue is in midline. Palate elevates symmetrically. Motor s trength examination preserved in all extremities. Normal bulk, tone, and strength. Sensory examina tion intact to light touch and pain grossly. Deep tendon reflexes 2+ upper extremities, 1+ knee [place], 2+ ankle jerks, downgoing toes bilaterally. Coordination preserved on [id number] testing. No dysmetria or tremor. I attempted [place]-Hallpike maneuver. When her head turns to the right and patient developed severe ve rtigo with a right beating rotary nystagmus. She did not feel good and wanted to lie down and so I did not proceed with left-sided maneuver. Gait was not assessed. The patient was very dizzy after the provoking maneuver. I forgot to mention that I noticed some cogwheeling in the hands bilaterally. She denied any tremul ousness. IMPRESSION: Acute vertigo, most likely right-sided benign peripheral positional vertigo. The patie nt is too dizzy with maneuvers, so I would not start any repositioning procedures for her, but start meclizine 12.5 three times a day. The patient complained of some mild lightheadedness, slowness of movement for 6 months. I have not walked her, but will try maybe tomorrow. She does have some cogwheeling in her wrists. Ventriculomegaly on CAT scan with no other signs of normal pressure hydrocephalus. Will see how she walks that if she has any magnetic gait, but at least she has no urinary incontinence and no major dementia, again no formal MMSE was done. Thank you very much for this interesting consultation. Dictated By: JESUS TIWARI/NTS Conf#: [id number] DID#: [id number] CC: HASEEB GARCIA MD; GUERRERO PETTIT MD;*End*
--- NOTE | 2016-07-26 19:19 | RADRPT ---
Echocardiogram Report Patient Name: KARISSA WASHBURN Gender: Female Date: 1935 Study Date: 26-Jul-2016 Logging Contractor: Kenny Ibarra [facility] Location: [id number] Ref. Physician: GUERRERO PETTIT Quality: Adequate Procedures: Transthoracic echocardiogram with complete 2D, M-Mode, and doppler examination. Indications: Dizziness. 2D/M Mode Doppler Measurement Value Normal Ranges Measurement Value Normal Ranges LVIDd 2D 5.0 3.5 - 5.6 cm LETITIA Vmax 2.5 cm2 LVIDs 2D 2.8 2.1 - 4.1 cm LETITIA VTI 2.5 cm2 LVPWd 2D 1.0 0.6 - 1.1 cm AV Mean Vlad 1.5 m/sec IVSd 2D 1.1 0.6 - 1.1 cm AV Mean PG 10.5 mmHg AoR Diam 2D 2.9 2.0 - 3.7 cm AV Peak Vlad 2.3 m/sec EDV 2D 118.4 cm3 AV Peak PG 20.3 mmHg ESV 2D 21.5 cm3 AV VTI 42.3 cm LA Dimen 2D 4.0 2.3 - 4.0 cm LVOT Mean Vlad 1.0 m/sec LVOT Diam 2.1 cm LVOT Mean PG 5.1 mmHg LVOT Peak Vlad 1.6 m/sec LVOT Peak PG 9.9 mmHg LVOT VTI 30.5 cm TR Peak Vlad 4.6 m/sec TR Peak PG 86.4 mmHg RVSP 101.0 mmHg Findings Left Ventricle: Normal left ventricular cavity size. Mild concentric left ventricular hypertrophy. Mild left ventricular systolic dysfunction. Ejection fraction is visually estimated at 45 %. Tissue Doppler/Mitral Doppler indices are consistent with restrictive physiology with markedly elevated left atrial pressure (Stage IIIIV diastolic dysfunction). These segments of the LV are hypokinetic mid septum segment and septum base segment. Right Ventricle: Normal right ventricular size. Normal right ventricular systolic function. Left Atrium: There is mild enlargement of left atrium. Right Atrium: There is mild enlargement of right atrium. Mitral Valve: Mitral valve leaflets appear mildly thickened. Mild mitral annular calcification. Mild mitral valve regurgitation. Aortic Valve: Aortic Valve Mechanical Prosthesis. Aortic valve Max velocity 2.25 m/sec. Max PG 20.30 mmHg. Mean PG 10.50 mmHg. Trace aortic valve regurgitation. Tricuspid Valve: Estimated peak PA systolic pressure 101 mmHg. Tricuspid valve appears mildly thickened. There is moderate tricuspid regurgitation. Pulmonic Valve: Normal pulmonic valve appearance. There is trace pulmonic regurgitation. Pericardium: Normal pericardium with no significant pericardial effusion. Aorta: Normal aortic root. IVC: Dilated IVC without respiratory collapse consistent with elevated right atrial pressure. Conclusions 1.Normal left ventricular cavity size. Mild concentric left ventricular hypertrophy. Mild left ventricular systolic dysfunction. Ejection fraction is visually estimated at 45 %. Tissue Doppler/Mitral Doppler indices are consistent with restrictive physiology with markedly elevated left atrial pressure (Stage III-IV diastolic dysfunction). 2.There is mild enlargement of left atrium. 3.There is mild enlargement of right atrium. 4.Mild mitral valve regurgitation. 5.Aortic Valve Mechanical Prosthesis. Aortic valve Max velocity 2.25 m/sec. Max PG 20.30 mmHg. Mean PG 10.50 mmHg. Trace central aortic valve regurgitation. 6.Estimated peak PA systolic pressure 101 mmHg. Tricuspid valve appears mildly thickened. There is moderate tricuspid regurgitation. 7.There is trace pulmonic regurgitation. Electronically Signed By: Jose Weldon 26-Jul-2016 19:19:33 -0800 Patient Name: KARISSA WASHBURN Study Date: 26-Jul-2016 [id number]
--- NOTE | 2016-07-26 21:19 | CONS ---
DATE OF ADMISSION: 07/25/2016 DATE OF CONSULTATION: 07/26/2016 REASON FOR CONSULTATION: 1. Abnormal electrocardiogram, assess for acute coronary syndrome. 2. History of prosthetic valve. 3. Dizziness, rule out coronary etiology. REQUESTING PHYSICIAN: Dr. Pettit HISTORY OF PRESENT ILLNESS: Ms. Garcia is an 81-year-old female with history of hypertension, depression, gastroesophageal reflux disease, dyslipidemia, mechanical mitral valve on Coumadin who i nitially presented with complaints of dizziness and associated weakness. Upon arrival, temperature 98.2, blood pressure 172/94, pulse 88, respirations 16, saturating 99%. The patient's labs revealed white count 11.2, hemoglobin 10.4, platelet count 322. Sodium 144, potassium 3.8, creatinine 1.1, BUN of 44. Troponin negative. BNP of 1700. INR 3.15. UA negative. The patient underwent a head CT revealing no acute intracranial hemorrhage or significant mass effect, severe subacute to chronic microvascular disease, intracranial atherosclerosis, chronic appearing bilateral cerebellar infarct s, large ventricles ____ effacement, ____ may be due to ____ and peripheral volume loss. The patien t additionally underwent a carotid Doppler revealing no hemodynamically significant stenoses. The p atient's electrocardiogram revealed most consistent with probable sinus rhythm, although it is diffi cult to discern P waves versus an accelerated junctional rhythm with borderline right axis deviation and nonspecific ST-T abnormalities diffusely. The patient subsequently has been admitted to the [facility]. She has been continued on a monitor on telemetry revealing sinus rhythm, no significant arrhyt hmias, no pauses. The patient continues to have significantly elevated blood pressures. The franciscoen t denies chest pain at this time. PAST MEDICAL HISTORY: As above in HPI. MEDICATIONS CURRENTLY IN HOSPITAL: 1. Coumadin 2 mg daily. 2. Insulin sliding scale. 3. Glucagon. 4. Lisinopril 20 mg daily. 5. Patanol. 6. Protonix 40 mg daily. 7. Norvasc 5 mg p.o. b.i.d. 8. Lipitor 20 mg at bedtime. 9. Lexapro 10 mg daily. 10. Ferrous sulfate 325 mg daily. 11. Clonidine p.r.n. 12. Xanax p.r.n. ALLERGIES: NO KNOWN DRUG ALLERGIES. SOCIAL HISTORY: No tobacco, ETOH, or illicit drug use. FAMILY HISTORY: No history of sudden cardiac or early CAD. REVIEW OF SYSTEMS: As above in HPI. CONSTITUTIONAL: No fevers, chills. PULMONARY: No current shortness of breath. CARDIOVASCULAR: ____ chest pain. GASTROINTESTINAL: No vomiting. GENITOURINARY: No hematuria. MUSCULOSKELETAL: Degenerative joint disease. PSYCHIATRIC: The patient has depression. NEUROLOGIC: No documented CVA. Positive dizziness. PHYSICAL EXAMINATION: VITAL SIGNS: Temperature of 97.4, blood pressure most recent 155/74, pulse 70, respiratory rate 18, saturating 98%. GENERAL: The patient is alert, awake, in no acute distress. NECK: JVP approximately 8 to 9 cm water. CHEST: Fair movement throughout with mildly decreased breath sounds at bases bilaterally. HEART: Regular rate and rhythm. Normal S1, S2. I/ systolic murmur, nondisplaced PMI. ABDOMEN: Positive bowel sounds, soft. EXTREMITIES: No pitting edema, 1+ pulses bilaterally, posterior tibial. LABORATORY DATA: As above in HPI. Most recent from today, sodium 145, potassium of 3.5, creatinine of 1.0, BUN of 24. Magnesium 1.5. LDL 90, HDL 31. Troponin negative. INR 2.88. UA negative. IMAGING STUDIES: As above in HPI. No further imaging studies for my review at this time. ELECTROCARDIOGRAM: As above in HPI. No further electrocardiograms for my review at this time. IMPRESSION: 1. Abnormal electrocardiogram, assess for acute coronary syndrome. 2. Dizziness, rule out cardiac etiology. Rule out cardiac arrhythmia. 3. Hypertension, uncontrolled. 4. History of mechanical prosthetic valve replacement. 5. 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 6. Diabetes mellitus. 7. Dyslipidemia. RECOMMENDATIONS: 1. At this time, would maintain the patient on telemetry monitoring to follow rhythm and rate contr ol closely and rule out any possible rhythm causes to the patient's dizziness. 2. Check orthostatics to ensure orthostasis is not contributing to the patient's dizziness. 3. Continue the patient's current Norvasc and lisinopril with up titration as necessary to improve overall systolic blood pressure control. 4. Check a 2D echocardiogram to further assess patient's ejection fraction, wall motion, and any ma macrina valve abnormalities with ongoing neurologic evaluation of the patient's dizziness. 5. We will continue to follow the patient's volume status closely and would give patient ongoing ge ntle Lasix diuresis. 6. Additionally, would follow the patient's INR closely with ongoing Coumadin loading. Thank you for allowing me to take part in the care of this patient. I will continue to follow along very closely with you with further recommendations to be made as the patient progresses through her inpatient hospital clinical course. Dictated By: TIMMY MANZO/DAVID Conf#: [id number] DID#: [id number] CC: GUERRERO PETTIT MD; HASEEB GARCIA MD;*EndCC*
[2016-07-26] MEDS: ATORVASTATIN 20 MG TAB PO SCH (21:30)
[2016-07-26] MEDS: ESCITALOPRAM 10 MG TAB PO SCH (21:30)
[2016-07-26] MEDS: MECLIZINE 12.5 MG TAB PO SCH (21:30)
[2016-07-27] VITALS (12 sets, daily range): BP systolic 118–185; BP diastolic 55–73; PULSE 60–83; RESP 17–20
[2016-07-27 01:56] LABS: CK-MB 4.59 ng/ml (0.0-2.4)
[2016-07-27 02:00] LABS: TROPONIN-I 0.02 ng/ml (0.00-0.12)
[2016-07-27] MEDS: ACCUCHECK XX SCH (02:00)
[2016-07-27] MEDS: PANTOPRAZOLE (EC) 40 MG TAB PO SCH (06:25)
[2016-07-27 07:09] LABS: INR 2.9; PROTIME 30.7 Sec (12.2-14.2); PT RATIO 2.4
[2016-07-27 07:26] LABS: POTASSIUM 3.4 mmol/L (3.5-5.1)
[2016-07-27 07:28] LABS: CREATININE 1.08 mg/dl (0.44-1.00)
[2016-07-27 07:29] LABS: CALCIUM 8.6 mg/dl (8.4-10.2)
[2016-07-27] MEDS: INSULIN ASPART [NOVOLOG] 3 ML PEN SC SCH ×4 (08:00→20:43)
[2016-07-27 08:01] LABS: CK-MB 4.16 ng/ml (0.0-2.4)
[2016-07-27 08:02] LABS: TROPONIN-I 0.017 ng/ml (0.00-0.12)
[2016-07-27] MEDS: FERROUS SULFATE (EC) 325 MG TAB PO SCH ×2 (08:11→20:32)
[2016-07-27] MEDS: LISINOPRIL 20 MG TAB PO SCH (08:11)
[2016-07-27] MEDS: MECLIZINE 12.5 MG TAB PO SCH ×3 (08:11→20:34)
[2016-07-27] MEDS: AMLODIPINE 5 MG TAB PO SCH ×2 (08:11→20:33)
[2016-07-27] MEDS: OLOPATADINE 0.1% 5 ML OPH BOTH EYES SCH ×2 (08:11→20:32)
[2016-07-27] MEDS ORDERED: FUROSEMIDE 20 MG INJ IV SCH (09:00)
[2016-07-27 09:38] LABS: BASOPHILS % 0.4 % (0.0-2.0); EOSINOPHILS # 0.1 10^3/ul (0.0-0.5); EOSINOPHILS % 1.4 % (0.0-7.0); HEMATOCRIT 29.1 % (37.0-47.0); HEMOGLOBIN 9.8 g/dl (12.0-16.0); LYMPHOCYTES # 1.5 10^3/ul (0.8-2.9); MEAN CORPUSCULAR HEMOGLOBIN 31.1 pg (29.0-33.0); MEAN CORPUSCULAR HGB CONC 33.6 g/dl (32.0-37.0); MEAN CORPUSCULAR VOLUME 92.5 fl (82.0-101.0); MEAN PLATELET VOLUME 7.7 fl (7.4-10.4); MONOCYTE # 0.7 10^3/ul (0.3-0.9); MONOCYTES % 6.8 % (0.0-11.0); NEUTROPHIL # 7.6 10^3/ul (1.6-7.5); NEUTROPHILS % 76.4 % (39.0-77.0); PLATELET COUNT 283 10^3/UL (140-440); RED BLOOD COUNT 3.14 10^6/ul (4.20-5.40); RED CELL DISTRIBUTION WIDTH 14.6 % (11.5-14.5); UNCORRECTED WBC 9.9 10^3/ul (4.8-10.8); WHITE BLOOD COUNT 9.9 10^3/ul (4.8-10.8)
[2016-07-27 09:41] LABS: CONDITION 1; LH ANALYZER COMMENTS 1
--- NOTE | 2016-07-27 15:46 | CONS ---
Date/Time of Note Date/Time of Note DATE: 07/27/16 TIME: 15:41 Assessment/Plan Assessment/Plan Chief Complaint/Hosp Course IMPRESSION: 1. Abnormal electrocardiogram, assess for acute coronary syndrome.-negative troponin x 3/Echo this admit EF 45%/mech AVR 2. Dizziness, rule out cardiac etiology. Rule out cardiac arrhythmia. 3. Hypertension, uncontrolled. 4. History of mechanical prosthetic valve replacement.-AVR 5. 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 6. Diabetes mellitus. 7. Dyslipidemia. 8.Orthostasis Recc: -Tele -serial ecg's -Continue coumadin and follow INR closely -Continue zestril/norvasc for now but may want to allow more permissive HTN given positive orthostatics -Slow positional changes -Follow volume status closely Problems: Consultation Date/Type/Reason Admit Date/Time Jul 25, 2016 at 11:17 Initial Consult Date 07/25/16 Type of Consultation: Cardiology Reason for Consultation AVR Referring Provider: HASEEB GARCIA MD Exam/Review of Systems Vital Signs Vitals Vital Signs Date Time Temp Pulse Resp B/P Pulse Ox O2 Delivery O2 Flow Rate FiO2 07/27/16 13:31 64 07/27/16 12:18 98.0 18 152/66 100 07/27/16 08:00 Nasal Cannula 2.0 Intake and Output 07/26/16 07/26/16 07/27/16 15:00 23:00 07:00 Intake Total 700 ml Balance 700 ml Exam Review of Systems: CONSTITUTIONAL: No fevers, chills. PULMONARY: No sob CARDIOVASCULAR: No chest pain/palpitations GASTROINTESTINAL: No nausea/vomiting. GENITOURINARY: No hematuria/dysuria. MUSCULOSKELETAL: No myagias/arthalgias. PSYCHIATRIC: The patient denies depression. NEUROLOGIC: No weakness Constitutional: alert, oriented Psych: no complaints Head: normocephalic ENMT: mucosa pink and moist Neck: jvd (9 cm water), supple Respiratory: diminished breath sounds (at bases/B) Cardiovascular: regular rate and rhythm Gastrointestinal: non-tender, soft Musculoskeletal: muscle tone (normal) Extremities: edema (none) Neurological: other (No focal deficits) Results Result Diagram: 07/27/16 0644 07/27/16 0644 Results 24 hrs Laboratory Tests Test 07/26/16 16:50 07/26/16 18:34 07/27/16 00:49 07/27/16 06:44 Bedside Glucose 122 Creatine Kinase 220 H 258 H 218 H Creatine Kinase Index 2.1 1.8 1.9 Creatinine Kinase MB (Mass) 4.69 H 4.59 H 4.16 H Troponin I < 0.012 0.020 0.017 Activated Partial Thromboplast Time 52.0 H Anion Gap 14 Basophils # 0.0 Basophils % 0.4 Blood Morphology Comment Blood Urea Nitrogen 21 H Calcium Level 8.6 Carbon Dioxide Level 31 Chloride Level 100 Creatinine 1.08 H Eosinophils # 0.1 Eosinophils % 1.4 Glucose Level 101 Hematocrit 29.1 L Hemoglobin 9.8 L INR International Normalized Ratio 2.90 Lymphocytes # 1.5 Lymphocytes % 15.0 Magnesium Level 1.9 Mean Corpuscular Hemoglobin 31.1 Mean Corpuscular Hemoglobin Concent 33.6 Mean Corpuscular Volume 92.5 Mean Platelet Volume 7.7 Monocytes # 0.7 Monocytes % 6.8 Neutrophils # 7.6 H Neutrophils % 76.4 Nucleated Red Blood Cells # 0.0 Nucleated Red Blood Cells % 0.0 Platelet Count 283 Potassium Level 3.4 L Prothrombin Time 30.7 H Prothrombin Time Ratio 2.4 Red Blood Count 3.14 L Red Cell Distribution Width 14.6 H Sodium Level 142 White Blood Count 9.9 # Test 07/27/16 07:18 07/27/16 11:27 Bedside Glucose 100 134 Medications Medications Current Medications Amlodipine Besylate (Norvasc) 5 mg BID PO Last administered on 07/27/16 08:11 ; Admin Dose 5 MG; Start 07/25/16 at 21:00 Atorvastatin Calcium (Lipitor) 20 mg QHS PO Last administered on 07/26/16 21: 30; Admin Dose 20 MG; Start 07/25/16 at 21:00 Clonidine (Catapres) 0.1 mg DAILY PRN PO sbp>160mmhg Last administered on 16:04; Admin Dose 0.1 MG; Start 07/25/16 at 17:30 Escitalopram Oxalate (Lexapro) 10 mg DAILY@21 PO Last administered on 21:30; Admin Dose 10 MG; Start 07/25/16 at 21:00 Ferrous Sulfate (Ferrous Sulfate (Ec)) 325 mg BID PO Last administered on 08:11; Admin Dose 325 MG; Start 07/25/16 at 21:00 Olopatadine HCl (Patanol 0.1% Oph) 1 drop BID BOTH EYES Last administered on 08:11; Admin Dose 1 DROP; Start 07/26/16 at 11:30 Alprazolam (Xanax) 0.125 mg QHS PRN PO anxiety Last administered on 07/25/16 21:47; Admin Dose 0.125 MG; Start 07/25/16 at 17:30 Pantoprazole (Protonix Tab) 40 mg DAILY@06 PO Last administered on 07/27/16 06 :25; Admin Dose 40 MG; Start 07/26/16 at 06:00 Lisinopril (Zestril) 20 mg DAILY PO Last administered on 07/27/16 08:11; Admin Dose 20 MG; Start 07/26/16 at 15:00 Diagnostic Test (Pha) (Accucheck) 1 ea 02 XX ; Start 07/27/16 at 02:00 Warfarin Sodium (Coumadin) 2 mg DAILY@17 PO Last administered on 07/26/16 17: 16; Admin Dose 2 MG; Start 07/26/16 at 17:00 Miscellaneous Information 1 ea NOTE XX ; Start 07/26/16 at 15:30 Glucose (Glutose) 15 gm Q15M PRN PO DECREASED GLUCOSE; Start 07/26/16 at 15:30 Glucose (Glutose) 22.5 gm Q15M PRN PO DECREASED GLUCOSE; Start 07/26/16 at 15: 30 Dextrose (D50w Syringe) 25 ml Q15M PRN IV DECREASED GLUCOSE; Start 07/26/16 at 15:30 Dextrose (D50w Syringe) 50 ml Q15M PRN IV DECREASED GLUCOSE; Start 07/26/16 at 15:30 Glucagon (Glucagen) 1 mg Q15M PRN IM DECREASED GLUCOSE; Start 07/26/16 at 15:30 Glucose (Glutose) 15 gm Q15M PRN BUCCAL DECREASED GLUCOSE; Start 07/26/16 at 15 :30 Furosemide (Lasix) 20 mg DAILY IV Last administered on 07/27/16 08:11; Admin Dose 20 MG; Start 07/27/16 at 09:00 Meclizine HCl (Antivert) 12.5 mg TID PO Last administered on 07/27/16t 12:21; Admin Dose 12.5 MG; Start 07/26/16 at 21:00 TIMMY CHU Jul 27, 2016 15:46
--- NOTE | 2016-07-27 15:56 | PN ---
Date/Time of Note Date/Time of Note DATE: 07/27/16 TIME: 15:51 Assessment/Plan VTE Prophylaxis VTE Prophylaxis Intervention: other (coumadin) Lines/Catheters IV Catheter Type (from Nrs): Saline Lock Urinary Cath still in place: No Assessment/Plan Assessment/Plan 81 yo F who resides alone managed for PROBLEMS: Acute onset of dizziness and weakness : likely 2/2 BPPV per neurology. * CT findings concerning for normal pressure hydrocephalus however neurosurgeon thinks unlikely * unable to get MRI d/t heart valve CKD: seems to be at baseline Lactic acidosis 2/2 dehydration: resolved Diarrhea ? resolved * C-diff r/o pending with recent hx of antibiotic use Proteinuria, rule out chronic kidney disease (DM nephropathy) CAD s/p History of coronary artery bypass surgery as well as valve replacement surgery, on Coumadin therapy * ACS ruled out Mild congestive heart failure with elevated BNP of 1700. diastolic dysfxn and reduced EF 45% on echo Prediabetic A1C 6.6 High blood pressure: improved control History of glaucoma. Chronic depression. Dyslipidemia. Chronic bilateral cerebellar infarct. PLAN Patient is too high functioning for Acute rehab Plan for d/c home with family versus SNF placement if no cardiac intervention planned Coumadin at lower dose and titrate to keep INR btw 2-3 Continue supportive care Appreciate all consultants, PROPHYLAXIS: Coumadin / PPI Subjective 24 Hr Interval Summary Free Text/Dictation Patient seen and examined. continues to feel well Exam/Review of Systems Vital Signs Vitals Vital Signs Date Time Temp Pulse Resp B/P Pulse Ox O2 Delivery O2 Flow Rate FiO2 07/27/16 13:31 64 07/27/16 12:18 98.0 18 152/66 100 07/27/16 08:00 Nasal Cannula 2.0 Intake and Output 07/26/16 07/26/16 07/27/16 15:00 23:00 07:00 Intake Total 700 ml Balance 700 ml Exam Constitutional: alert, oriented, No frail Psych: nl mood/affect Head: atraumatic, normocephalic Eyes: PERRL, No icteric ENMT: mucosa pink and moist Neck: supple Respiratory: diminished breath sounds Cardiovascular: other (click from mech valve), regular rate and rhythm Gastrointestinal: bowel sounds, non-tender, soft Extremities: edema Neurological: nl mental status, nl speech Results Result Diagram: 07/27/16 0644 07/27/16 0644 Results 24 hrs Laboratory Tests Test 07/26/16 16:50 07/26/16 18:34 07/27/16 00:49 07/27/16 06:44 Bedside Glucose 122 Creatine Kinase 220 H 258 H 218 H Creatine Kinase Index 2.1 1.8 1.9 Creatinine Kinase MB (Mass) 4.69 H 4.59 H 4.16 H Troponin I < 0.012 0.020 0.017 Activated Partial Thromboplast Time 52.0 H Anion Gap 14 Basophils # 0.0 Basophils % 0.4 Blood Morphology Comment Blood Urea Nitrogen 21 H Calcium Level 8.6 Carbon Dioxide Level 31 Chloride Level 100 Creatinine 1.08 H Eosinophils # 0.1 Eosinophils % 1.4 Glucose Level 101 Hematocrit 29.1 L Hemoglobin 9.8 L INR International Normalized Ratio 2.90 Lymphocytes # 1.5 Lymphocytes % 15.0 Magnesium Level 1.9 Mean Corpuscular Hemoglobin 31.1 Mean Corpuscular Hemoglobin Concent 33.6 Mean Corpuscular Volume 92.5 Mean Platelet Volume 7.7 Monocytes # 0.7 Monocytes % 6.8 Neutrophils # 7.6 H Neutrophils % 76.4 Nucleated Red Blood Cells # 0.0 Nucleated Red Blood Cells % 0.0 Platelet Count 283 Potassium Level 3.4 L Prothrombin Time 30.7 H Prothrombin Time Ratio 2.4 Red Blood Count 3.14 L Red Cell Distribution Width 14.6 H Sodium Level 142 White Blood Count 9.9 # Test 07/27/16 07:18 07/27/16 11:27 Bedside Glucose 100 134 Medications Medications Current Medications Amlodipine Besylate (Norvasc) 5 mg BID PO Last administered on 07/27/16 08:11 ; Admin Dose 5 MG; Start 07/25/16 at 21:00 Atorvastatin Calcium (Lipitor) 20 mg QHS PO Last administered on 07/26/16 21: 30; Admin Dose 20 MG; Start 07/25/16 at 21:00 Clonidine (Catapres) 0.1 mg DAILY PRN PO sbp>160mmhg Last administered on 16:04; Admin Dose 0.1 MG; Start 07/25/16 at 17:30 Escitalopram Oxalate (Lexapro) 10 mg DAILY@21 PO Last administered on 21:30; Admin Dose 10 MG; Start 07/25/16 at 21:00 Ferrous Sulfate (Ferrous Sulfate (Ec)) 325 mg BID PO Last administered on 08:11; Admin Dose 325 MG; Start 07/25/16 at 21:00 Olopatadine HCl (Patanol 0.1% Oph) 1 drop BID BOTH EYES Last administered on 08:11; Admin Dose 1 DROP; Start 07/26/16 at 11:30 Alprazolam (Xanax) 0.125 mg QHS PRN PO anxiety Last administered on 07/25/16 21:47; Admin Dose 0.125 MG; Start 07/25/16 at 17:30 Pantoprazole (Protonix Tab) 40 mg DAILY@06 PO Last administered on 07/27/16 06 :25; Admin Dose 40 MG; Start 07/26/16 at 06:00 Lisinopril (Zestril) 20 mg DAILY PO Last administered on 07/27/16 08:11; Admin Dose 20 MG; Start 07/26/16 at 15:00 Diagnostic Test (Pha) (Accucheck) 1 ea 02 XX ; Start 07/27/16 at 02:00 Warfarin Sodium (Coumadin) 2 mg DAILY@17 PO Last administered on 07/26/16 17: 16; Admin Dose 2 MG; Start 07/26/16 at 17:00 Miscellaneous Information 1 ea NOTE XX ; Start 07/26/16 at 15:30 Glucose (Glutose) 15 gm Q15M PRN PO DECREASED GLUCOSE; Start 07/26/16 at 15:30 Glucose (Glutose) 22.5 gm Q15M PRN PO DECREASED GLUCOSE; Start 07/26/16 at 15: 30 Dextrose (D50w Syringe) 25 ml Q15M PRN IV DECREASED GLUCOSE; Start 07/26/16 at 15:30 Dextrose (D50w Syringe) 50 ml Q15M PRN IV DECREASED GLUCOSE; Start 07/26/16 at 15:30 Glucagon (Glucagen) 1 mg Q15M PRN IM DECREASED GLUCOSE; Start 07/26/16 at 15:30 Glucose (Glutose) 15 gm Q15M PRN BUCCAL DECREASED GLUCOSE; Start 07/26/16 at 15 :30 Meclizine HCl (Antivert) 12.5 mg TID PO Last administered on 2/22/17at 12:21; Admin Dose 12.5 MG; Start 07/26/16 at 21:00 GUERRERO PETTIT Jul 27, 2016 15:56
--- NOTE | 2016-07-27 16:00 | RADRPT ---
Vent Rate: 76 bpm RR Interval: 0 msec [place] Interval: 0 msec QRS Duration: 92 msec QT Interval: 438 msec QTC Interval: 492 msec P-R-T [place]: 0 - 52 - 119 degrees Atrial fibrillation Nonspecific ST and T wave abnormality , probably digitalis effect Prolonged QT Abnormal ECG Electronically Signed By: Marek Osborne [id number]
[2016-07-27] MEDS ORDERED: LISI20TA11 PO (16:45)
[2016-07-27] MEDS ORDERED: AMLO-145 PO (16:45)
[2016-07-27] MEDS ORDERED: WARF2TAB PO (16:45)
[2016-07-27] MEDS ORDERED: METO25TA7 PO (16:45)
[2016-07-27] MEDS ORDERED: MECL12.574 PO (16:45)
[2016-07-27] MEDS: WARFARIN 2 MG TAB PO SCH (16:54)
[2016-07-27] MEDS ORDERED: POTASSIUM CHLORIDE 250 ML IVPB ONE (17:00)
[2016-07-27] MEDS ORDERED: POTASSIUM CHLORIDE (SR) 20 MEQ TAB PO STA (18:28)
--- NOTE | 2016-07-27 20:27 | CONS ---
Date/Time of Note Date/Time of Note DATE: 07/27/16 TIME: 20:23 Consult Date/Type/Reason Admit Date/Time Jul 25, 2016 at 11:17 Initial Consult Date 07/25/16 Type of Consultation: Neurology Ordering Provider: HASEEB GARCIA MD Subjective Feels better, no vertigo today, on small dose meclizine Objective Vital Signs Date Time Temp Pulse Resp B/P Pulse Ox O2 Delivery O2 Flow Rate FiO2 07/27/16 19:00 97.6 63 18 121/59 96 07/27/16 19:00 Nasal Cannula 2.0 Intake and Output 07/26/16 07/26/16 07/27/16 15:00 23:00 07:00 Intake Total 700 ml Balance 700 ml Results/Medications Result Diagram: 07/27/16 0644 07/27/16 0644 Results 24 hrs Laboratory Tests Test 07/27/16 00:49 07/27/16 06:44 07/27/16 07:18 07/27/16 11:27 Creatine Kinase 258 H 218 H Creatine Kinase Index 1.8 1.9 Creatinine Kinase MB (Mass) 4.59 H 4.16 H Troponin I 0.020 0.017 Activated Partial Thromboplast Time 52.0 H Anion Gap 14 Basophils # 0.0 Basophils % 0.4 Blood Morphology Comment Blood Urea Nitrogen 21 H Calcium Level 8.6 Carbon Dioxide Level 31 Chloride Level 100 Creatinine 1.08 H Eosinophils # 0.1 Eosinophils % 1.4 Glucose Level 101 Hematocrit 29.1 L Hemoglobin 9.8 L INR International Normalized Ratio 2.90 Lymphocytes # 1.5 Lymphocytes % 15.0 Magnesium Level 1.9 Mean Corpuscular Hemoglobin 31.1 Mean Corpuscular Hemoglobin Concent 33.6 Mean Corpuscular Volume 92.5 Mean Platelet Volume 7.7 Monocytes # 0.7 Monocytes % 6.8 Neutrophils # 7.6 H Neutrophils % 76.4 Nucleated Red Blood Cells # 0.0 Nucleated Red Blood Cells % 0.0 Platelet Count 283 Potassium Level 3.4 L Prothrombin Time 30.7 H Prothrombin Time Ratio 2.4 Red Blood Count 3.14 L Red Cell Distribution Width 14.6 H Sodium Level 142 White Blood Count 9.9 # Bedside Glucose 100 134 Test 07/27/16 16:53 Bedside Glucose 108 Medications Current Medications Amlodipine Besylate (Norvasc) 5 mg BID PO Last administered on 07/27/16 08:11 ; Admin Dose 5 MG; Start 07/25/16 at 21:00 Atorvastatin Calcium (Lipitor) 20 mg QHS PO Last administered on 07/26/16 21: 30; Admin Dose 20 MG; Start 07/25/16 at 21:00 Clonidine (Catapres) 0.1 mg DAILY PRN PO sbp>160mmhg Last administered on 16:04; Admin Dose 0.1 MG; Start 07/25/16 at 17:30 Escitalopram Oxalate (Lexapro) 10 mg DAILY@21 PO Last administered on 21:30; Admin Dose 10 MG; Start 07/25/16 at 21:00 Ferrous Sulfate (Ferrous Sulfate (Ec)) 325 mg BID PO Last administered on 08:11; Admin Dose 325 MG; Start 07/25/16 at 21:00 Olopatadine HCl (Patanol 0.1% Oph) 1 drop BID BOTH EYES Last administered on 08:11; Admin Dose 1 DROP; Start 07/26/16 at 11:30 Alprazolam (Xanax) 0.125 mg QHS PRN PO anxiety Last administered on 07/25/16 21:47; Admin Dose 0.125 MG; Start 07/25/16 at 17:30 Pantoprazole (Protonix Tab) 40 mg DAILY@06 PO Last administered on 07/27/16 06 :25; Admin Dose 40 MG; Start 07/26/16 at 06:00 Diagnostic Test (Pha) (Accucheck) 1 ea 02 XX ; Start 07/27/16 at 02:00 Warfarin Sodium (Coumadin) 2 mg DAILY@17 PO Last administered on 07/27/16 16: 54; Admin Dose 2 MG; Start 07/26/16 at 17:00 Miscellaneous Information 1 ea NOTE XX ; Start 07/26/16 at 15:30 Glucose (Glutose) 15 gm Q15M PRN PO DECREASED GLUCOSE; Start 07/26/16 at 15:30 Glucose (Glutose) 22.5 gm Q15M PRN PO DECREASED GLUCOSE; Start 07/26/16 at 15: 30 Dextrose (D50w Syringe) 25 ml Q15M PRN IV DECREASED GLUCOSE; Start 07/26/16 at 15:30 Dextrose (D50w Syringe) 50 ml Q15M PRN IV DECREASED GLUCOSE; Start 07/26/16 at 15:30 Glucagon (Glucagen) 1 mg Q15M PRN IM DECREASED GLUCOSE; Start 07/26/16 at 15:30 Glucose (Glutose) 15 gm Q15M PRN BUCCAL DECREASED GLUCOSE; Start 07/26/16 at 15 :30 Meclizine HCl (Antivert) 12.5 mg TID PO Last administered on 07/27/16t 12:21; Admin Dose 12.5 MG; Start 07/26/16 at 21:00 Lisinopril (Zestril) 40 mg DAILY PO ; Start 07/28/16 at 09:00 Lisinopril (Zestril) 20 mg ONCE ONCE PO ; Start 07/27/16 at 21:00; Stop at 21:01 Assessment/Plan Chief Complaint/Hosp Course PHYSICAL EXAMINATION GENERAL: She is not in acute distress, sitting on the edge of the bed. HEENT: Normocephalic, atraumatic head. NECK: No carotid bruits. No thyromegaly. LUNGS: Clear to auscultation bilaterally. CARDIAC: Normal cardiac rhythm and sounds. ABDOMEN: Soft, nontender. EXTREMITIES: No cyanosis, clubbing, or edema. NEUROLOGIC: She is awake, alert, and oriented x3 with fluent speech. Cranial nerve examination shows intact visual vides bilaterally. Pupils are somewhat sluggish from 4 to 3 mm on the right and from 3 to 2 mm on the left. Extraocular movements intact without nystagmus. Symmetrical face. Preserved facial strength and sensation. Tongue is in midline. Palate elevates symmetrically. Motor strength examination preserved in all extremities. Normal bulk, cogwheeling in UE, normal strength. Sensory examination intact to light touch and pain grossly. Deep tendon reflexes 2+ upper extremities, 1+ knee jerks, 2+ ankle jerks, downgoing toes bilaterally. Coordination preserved on [id number] testing. No dysmetria or tremor. Cautious, slow gait (for a few steps), no shuffling, no magnetic gate IMPRESSION: Acute vertigo, most likely right-sided benign peripheral positional vertigo, resolving. Cont meclizine prn Ventriculomegaly on CAT scan with no other signs of normal pressure hydrocephalus. Out pt f/u 1 mo Thanks Problems: JESUS CARSON MD Jul 27, 2016 20:27
[2016-07-27] MEDS: ATORVASTATIN 20 MG TAB PO SCH (20:32)
[2016-07-27] MEDS: ESCITALOPRAM 10 MG TAB PO SCH (20:33)
[2016-07-27] MEDS ORDERED: LISINOPRIL 20 MG TAB PO ONE (21:00)
[2016-07-28] VITALS (8 sets, daily range): BP systolic 126–156; BP diastolic 63–74; PULSE 64–93; RESP 18–20
[2016-07-28] MEDS: ACCUCHECK XX SCH (02:00)
[2016-07-28] MEDS: PANTOPRAZOLE (EC) 40 MG TAB PO SCH (05:32)
[2016-07-28 07:24] LABS: INR 3.04; PROTIME 31.9 Sec (12.2-14.2); PT RATIO 2.5
[2016-07-28 07:30] LABS: POTASSIUM 4.2 mmol/L (3.5-5.1)
[2016-07-28 07:32] LABS: CREATININE 1.1 mg/dl (0.44-1.00)
[2016-07-28 07:33] LABS: CALCIUM 8.8 mg/dl (8.4-10.2)
[2016-07-28] MEDS: INSULIN ASPART [NOVOLOG] 3 ML PEN SC SCH ×2 (08:00→12:00)
[2016-07-28 08:03] LABS: BASOPHILS % 0.6 % (0.0-2.0); EOSINOPHILS # 0.3 10^3/ul (0.0-0.5); HEMOGLOBIN 9.9 g/dl (12.0-16.0); LYMPHOCYTES # 1.2 10^3/ul (0.8-2.9); LYMPHOCYTES % 17.6 % (15.0-51.0); MEAN CORPUSCULAR HGB CONC 31.9 g/dl (32.0-37.0); MEAN CORPUSCULAR VOLUME 93.9 fl (82.0-101.0); MONOCYTE # 0.6 10^3/ul (0.3-0.9); MONOCYTES % 8.8 % (0.0-11.0); NEUTROPHIL # 4.7 10^3/ul (1.6-7.5); NEUTROPHILS % 68.6 % (39.0-77.0); PLATELET COUNT 279 10^3/UL (140-415); RED CELL DISTRIBUTION WIDTH 14.1 % (11.5-14.5); WHITE BLOOD COUNT 6.8 10^3/ul (4.8-10.8)
[2016-07-28] MEDS ORDERED: LISINOPRIL 20 MG TAB PO SCH (09:00)
[2016-07-28] MEDS: OLOPATADINE 0.1% 5 ML OPH BOTH EYES SCH (09:10)
[2016-07-28] MEDS: AMLODIPINE 5 MG TAB PO SCH (09:10)
[2016-07-28] MEDS: MECLIZINE 12.5 MG TAB PO SCH ×2 (09:11→13:47)
[2016-07-28] MEDS: FERROUS SULFATE (EC) 325 MG TAB PO SCH (09:11)
--- NOTE | 2016-07-28 10:16 | PDOCDIS ---
Discharge Instructions DIAGNOSIS Discharge Diagnosis: Vertigo CONDITION Patient Condition: Stable HOME CARE INSTRUCTIONS: Special Diet: LOW CHOL LOW FAT CARB CONTROLLED ACTIVITY: Activity Restrictions: Slowly Increase Activity Rest between Activity Activity Restrictions Comment: Fall precautions REFERRALS Agency Name and Phone Number: [facility] [phone] OTHER ORDERS: Other Orders: * Followup with your primary doctor and lead java developer architect within the next 1-2 weeks. * Review your medication list with your nurse before leaving and if you need new prescriptions please let your nurse know. * I have made changes to your home medications or given you new prescriptions, please let your primary doctor know as well. * Stay compliant with your medications and report any side effects to your PCP or pharmacist. * Return to the ER if you have any concerns and cannot reach your doctors or call your insurance company, they usually have a nurse that can help you. GUERRERO PETTIT Jul 28, 2016 10:16
--- NOTE | 2016-07-28 12:43 | CONS ---
Date/Time of Note Date/Time of Note DATE: 07/28/16 TIME: 12:35 Assessment/Plan Assessment/Plan Chief Complaint/Hosp Course IMPRESSION: 1. Abnormal electrocardiogram, assess for acute coronary syndrome.-negative troponin x 3/Echo this admit EF 45%/mech AVR 2. Dizziness, rule out cardiac etiology. Rule out cardiac arrhythmia. 3. Hypertension-reasonable 4. History of mechanical prosthetic valve replacement.-AVR 5. 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 6. Diabetes mellitus. 7. Dyslipidemia. 8.Orthostasis Recc: -Tele -serial ecg's -Continue coumadin and follow INR closely -Continue zestril/norvasc for now but may want to allow more permissive HTN given positive orthostatics -Slow positional changes -Follow volume status closely -D/C planning Problems: Consultation Date/Type/Reason Admit Date/Time Jul 25, 2016 at 11:17 Initial Consult Date 07/25/16 Type of Consultation: cardiology Reason for Consultation AVR Referring Provider: HASEEB GARCIA MD Exam/Review of Systems Vital Signs Vitals Vital Signs Date Time Temp Pulse Resp B/P Pulse Ox O2 Delivery O2 Flow Rate FiO2 07/28/16 12:14 73 07/28/16 11:00 98.1 19 146/65 94 07/27/16 19:00 Nasal Cannula 2.0 Intake and Output 07/27/16 07/27/16 07/28/16 15:00 23:00 07:00 Intake Total 800 ml Balance 800 ml Exam Review of Systems: CONSTITUTIONAL: No fevers, chills. PULMONARY: No sob CARDIOVASCULAR: No chest pain/palpitations GASTROINTESTINAL: No nausea/vomiting. GENITOURINARY: No hematuria/dysuria. MUSCULOSKELETAL: No myagias/arthalgias. PSYCHIATRIC: The patient denies depression. NEUROLOGIC: No weakness Constitutional: alert, oriented Psych: no complaints Head: normocephalic ENMT: mucosa pink and moist Neck: jvd (9 cm water), supple Respiratory: clear to auscultation Cardiovascular: regular rate and rhythm Gastrointestinal: soft Musculoskeletal: muscle tone (normal) Extremities: edema (none) Neurological: other (No focal deficits) Results Result Diagram: 07/28/16 0621 07/28/16 0621 Results 24 hrs Laboratory Tests Test 07/27/16 16:53 07/27/16 20:42 07/28/16 06:21 07/28/16 07:57 Bedside Glucose 108 127 85 Anion Gap 14 Basophils # 0.0 Basophils % 0.6 Blood Urea Nitrogen 27 H Calcium Level 8.8 Carbon Dioxide Level 32 H Chloride Level 102 Creatine Kinase 190 Creatinine 1.10 H Eosinophils # 0.3 Eosinophils % 4.0 Glucose Level 99 Hematocrit 31.0 L Hemoglobin 9.9 L INR International Normalized Ratio 3.04 Lymphocytes # 1.2 Lymphocytes % 17.6 Mean Corpuscular Hemoglobin 30.0 Mean Corpuscular Hemoglobin Concent 31.9 L Mean Corpuscular Volume 93.9 Mean Platelet Volume 10.0 # Monocytes # 0.6 Monocytes % 8.8 Neutrophils # 4.7 Neutrophils % 68.6 Nucleated Red Blood Cells # 0.0 Nucleated Red Blood Cells % 0.0 Platelet Count 279 Potassium Level 4.2 Prothrombin Time 31.9 H Prothrombin Time Ratio 2.5 Red Blood Count 3.30 L Red Cell Distribution Width 14.1 Sodium Level 144 White Blood Count 6.8 # Test 07/28/16 12:14 Bedside Glucose 103 Medications Medications Current Medications Amlodipine Besylate (Norvasc) 5 mg BID PO Last administered on 07/28/16 09:10 ; Admin Dose 5 MG; Start 07/25/16 at 21:00 Atorvastatin Calcium (Lipitor) 20 mg QHS PO Last administered on 07/27/16 20: 32; Admin Dose 20 MG; Start 07/25/16 at 21:00 Clonidine (Catapres) 0.1 mg DAILY PRN PO sbp>160mmhg Last administered on 16:04; Admin Dose 0.1 MG; Start 07/25/16 at 17:30 Escitalopram Oxalate (Lexapro) 10 mg DAILY@21 PO Last administered on 20:33; Admin Dose 10 MG; Start 07/25/16 at 21:00 Ferrous Sulfate (Ferrous Sulfate (Ec)) 325 mg BID PO Last administered on 09:11; Admin Dose 325 MG; Start 07/25/16 at 21:00 Olopatadine HCl (Patanol 0.1% Oph) 1 drop BID BOTH EYES Last administered on 09:10; Admin Dose 1 DROP; Start 07/26/16 at 11:30 Alprazolam (Xanax) 0.125 mg QHS PRN PO anxiety Last administered on 07/25/16 21:47; Admin Dose 0.125 MG; Start 07/25/16 at 17:30 Pantoprazole (Protonix Tab) 40 mg DAILY@06 PO Last administered on 07/28/16 05 :32; Admin Dose 40 MG; Start 07/26/16 at 06:00 Diagnostic Test (Pha) (Accucheck) 1 ea 02 XX ; Start 07/27/16 at 02:00 Warfarin Sodium (Coumadin) 2 mg DAILY@17 PO Last administered on 07/27/16 16: 54; Admin Dose 2 MG; Start 07/26/16 at 17:00 Miscellaneous Information 1 ea NOTE XX ; Start 07/26/16 at 15:30 Glucose (Glutose) 15 gm Q15M PRN PO DECREASED GLUCOSE; Start 07/26/16 at 15:30 Glucose (Glutose) 22.5 gm Q15M PRN PO DECREASED GLUCOSE; Start 07/26/16 at 15: 30 Dextrose (D50w Syringe) 25 ml Q15M PRN IV DECREASED GLUCOSE; Start 07/26/16 at 15:30 Dextrose (D50w Syringe) 50 ml Q15M PRN IV DECREASED GLUCOSE; Start 07/26/16 at 15:30 Glucagon (Glucagen) 1 mg Q15M PRN IM DECREASED GLUCOSE; Start 07/26/16 at 15:30 Glucose (Glutose) 15 gm Q15M PRN BUCCAL DECREASED GLUCOSE; Start 07/26/16 at 15 :30 Meclizine HCl (Antivert) 12.5 mg TID PO Last administered on 07/28/16 09:11; Admin Dose 12.5 MG; Start 07/26/16 at 21:00 Lisinopril (Zestril) 40 mg DAILY PO Last administered on 07/28/16 09:11; Admin Dose 40 MG; Start 07/28/16 at 09:00 TIMMY CHU Jul 28, 2016 12:43
--- NOTE | 2016-07-28 13:20 | DS ---
DATE OF ADMISSION: 07/25/2016 DATE OF DISCHARGE: 07/28/2016 PRESENTING COMPLAINT: Dizziness. ADMISSION DIAGNOSES: 1. Acute onset of dizziness and weakness with CT findings concerning for normal pressure hydrocepha anila, rule out an acute ischemic event. 2. Acute dehydration, thought to be secondary to diarrhea. 3. Lactic acidosis secondary to dehydration. 4. Diarrhea concerning for C diff infection. 5. Proteinuria, rule out chronic kidney disease. 6. History of coronary artery bypass surgery, status post mechanical valve replacement, on Coumadin therapy. 7. Mild congestive heart failure. 8. High blood pressure with suboptimal control. 9. Chronic glaucoma. 10. Chronic depression. 11. Dyslipidemia. 12. Acute renal insufficiency. 13. Chronic bilateral cerebellar infarct. CONSULTS ON THE CASE: 1. Dr. Sandeep Blanco. He was consulted because of concern for normal pressure hydrocephalus, on CT . However, per his recommendations, the patient does have prominent ventricles. However, her clini vishnu picture is not consistent with normal pressure hydrocephalus or other forms of hydrocephalus. H er thinking is lucid, and she is not incontinent. Gait may not be normal; however NPH is better ass essed in outpatient setting. He discussed with the patient's daughter that in the future if the pat gunner develops thinking problems, worsening gait, or urinary incontinence, she should be evaluated fo r possible NPH. He did recommend an MRI of the brain; however, this was not able to be done because the patient had a mechanical heart valve. 2. She was seen by Dr. Quentin Graves from neurology and Dr. Graves gave an assessment of acute vertigo, most likely right-sided, benign, peripheral, positional vertigo, and started her o n meclizine 12.5 mg 3 times daily which improved her symptoms. 3. She was also seen by Dr. Jose Weldon who evaluated her for an abnormal EKG and he made an asse ssment of orthostatic hypotension and ruled out cardiac arrhythmia as a cause of her dizziness. He did recommend continuing Zestril and Norvasc, but suggested that the patient might want to be switch ed from Norvasc to a different antihypertensive that sometimes can cause orthostatic hypotension. H e did recommend outpatient management of this, however, and the patient's daughter was notified of t valeriae findings and had said she would communicate these concerns to the patient's outpatient cardiolo gist. As of today, the patient reports significant improvement in her dizziness. She has been seen by physical therapy and in a physical therapy assessment they determined that the patient would justin efit from home with assistance and home health PT, and at this time that is what the family has chos en to go with. DISPOSITION: At this time is to home with home health services for physical therapy and nursing to assist with INR management, is on Coumadin therapy as well as DMEs as needed. FINAL DIAGNOSIS: 1. Acute onset of dizziness and weakness, likely secondary to BPPV per neurology, now resolved, on meclizine t.i.d. 2. CT findings concerning for normal pressure hydrocephalus highly unlikely per neurosurgery as wel l as neurology. 3. Chronic kidney disease. 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 4. Diet-controlled diabetes. The patient did have an elevated hemoglobin A1c of 6.6, consistent wi th a diagnosis of prediabetes, but this was well controlled in house on a low calorie diet only. 5. Status post mechanical heart valve placement, therapeutic on Coumadin therapy. 6. High blood pressure, now controlled. 7. Chronic glaucoma, stable. 8. Chronic depression. 9. Dyslipidemia. 10. Chronic bilateral cerebellar infarct which could explain some of her symptoms. Also we cannot rule out an acute infarct as patient could not get an MRI. 11. 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 Please note the followin. Urinary tract infection was ruled out with negative urine cultures and patient also had a caroti d artery stenosis that was also ruled out with normal bilateral carotid Dopplers. 2. Chest x-ray also did not show any acute pneumonia. 3. Head CT did not show any acute bleed. DISCHARGE CONDITION: Stable. ACTIVITY: As tolerated with physical therapy as well as fall precautions. DISCHARGE MEDICATIONS: 1. Lisinopril 40 mg daily. 2. Meclizine 12.5 p.o. t.i.d. 3. Lipitor 20 mg p.o. at bedtime. The patient can continue her on benzonatate for cough as needed. 4. Lexapro 10 mg p.o. daily. 5. Nexium 40 p.o. daily. 6. Ferrous sulfate 325 b.i.d. 7. Lasix 20 daily. 8. Olopatadine drops 1 drop both eyes daily. 9. Potassium chloride 8 mEq p.o. daily. 10. Triazolam 0.25 mg p.o. at bedtime p.r.n. insomnia. 11. Amlodipine was reduced from 5 mg b.i.d. to daily. 12. Toprol-XL was changed from 25 b.i.d. to daily, which is what is supposed to be. 13. Coumadin was also reduced from 3 mg daily to 2 mg daily because she had come with a supratherap eutic INR. 14. Clonidine was stopped and her hydrochlorothiazide was also stopped and this could also precipit ate orthostatic hypotension. DIET: Recommended home diet is 1800 ADA, low cholesterol, low fat. FOLLOWUP: The patient is encouraged to follow up with her apparel rental clerk as soon as possible to notif y him of changes and events in the hospital as well as her primary care physician. Overall time spent on discharge coordination and planning has been more than 40 minutes. I have spo karen with the patient's daughter in detail. I have spoken with vocational case manager. I have spoken with the specialists to ensure clearance. Dictated By: GUERRERO PETTIT MD, BA/DAVID Conf#: [id number] DID#: [id number]
== END 2016-07-28 14:00 | disposition home or self-care (01) ==
LOC: E/R 08:24 → MS4 11:17 → INTOOBSV 11:17 → MS4 14:04
PROVIDERS: ADMIT Family Medicine; ATTEND Family Medicine
DX: R42 Dizziness and giddiness (principal); R53.1 Weakness; G91.2 (Idiopathic) normal pressure hydrocephalus; I13.0 Hypertensive heart and chronic kidney disease with heart failure and stage 1 through stage 4 chronic kidney disease, or unspecified chronic kidney disease; N18.9 Chronic kidney disease, unspecified; I50.30 Unspecified diastolic (congestive) heart failure; E11.22 Type 2 diabetes mellitus with diabetic chronic kidney disease; I63.9 Cerebral infarction, unspecified; I25.10 Atherosclerotic heart disease of native coronary artery without angina pectoris; Z95.1 Presence of aortocoronary bypass graft; K21.9 Gastro-esophageal reflux disease without esophagitis; F32.9 Major depressive disorder, single episode, unspecified; E78.5 Hyperlipidemia, unspecified; E86.0 Dehydration; H40.9 Unspecified glaucoma; Z95.2 Presence of prosthetic heart valve; Z79.01 Long term (current) use of anticoagulants; Z82.49 Family history of ischemic heart disease and other diseases of the circulatory system; Z23 Encounter for immunization
CPT/HCPCS: 70450; 71010; 80048; 80053; 80061; 81001; 82150; 82550; 82553; 82962; 83036; 83605; 83690; 83735; 83880; 84443; 84484; 85025; 85610; 85730; 87086; 90686; 93005; 93306; 93880; 96374; 97164; 99285; G0378; G8978; G8979; J1815; J1940; J2405; J3475; J3480; J7030; 81003